=== PATIENT | male | born 1965 | race Caucasian/White ===

== ENCOUNTER 2016-10-25 11:07 | Emergency (ER) | payer SELFPAY ==
[~2016-10-25] VITALS: Ht 195.6 cm; Wt 121.4 kg
[2016-10-25 11:10] VITALS: TEMP 36.6; Ht 195.6 cm; Wt 121.4 kg
[2016-10-25] MEDS ORDERED: ONDANSETRON INJ 2 MG/ML 2 ML VIAL IV STA (11:52)
[2016-10-25] MEDS ORDERED: MoRPHine SULFATE 10 MG/ML CARP/VIAL IV STA (11:52)
[2016-10-25] MEDS ORDERED: SODIUM CHLORIDE 0.9% 1000ML 1,000 ML IV STA (11:52)
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
[2016-10-25 12:30] LABS: BASO % 0.7 %; BASO ABS # 0.06 K/uL (0-0.2); COMPLETE YES; EOS % 4.3 %; HEMATOCRIT 42.1 % (42-52); IG% 0.1 %; LYMPH % 35.7 %; MEAN CELL VOLUME 93.3 fL (80-100); MEAN CORPUSCULAR HEMOGLOBIN 31.9 pg (25-34); MEAN CORPUSCULAR HGB CONC 34.2 g/dl (32-36); MEAN PLATELET VOLUME 11.2 fL (7.4-10.4); MONO % 5.5 %; NEUT % 53.7 %; PLATELET COUNT 139 K/uL (130-400); RED BLOOD COUNT 4.51 M/uL (4.7-6.1); WHITE BLOOD COUNT 8.13 K/uL (4.8-10.8)
--- NOTE | 2016-10-25 12:32 | DIAGNOSTIC IMAGING REPORT ---
CT HEAD WITHOUT CONTRAST (CT) CLINICAL HISTORY: headache HYPERTENSION COMPARISON STUDY: No previous studies for comparison. TECHNIQUE: Axial CT of the brain is performed from the vertex to the skull base. IV contrast was not administered for this examination. CT DOSE: 729.78 mGycm FINDINGS: No intra or extra-axial mass lesions are visualized. There is no CT evidence of acute cortical infarction. There is no evidence of midline shift. There is no acute hemorrhage. No calvarial fractures are visualized. There is no evidence of pathologic ventricular dilatation. There is partial opacification of multiple ethmoid air cells. IMPRESSION: 1. No acute intracranial findings 2. Ethmoid sinus mucosal disease. Electronically signed by: Billy Ramon M.D. 10/25/2016 12:31 PM Dictated Date/Time: 10/25/2016 12:29 PM
--- NOTE | 2016-10-25 12:35 | DIAGNOSTIC IMAGING REPORT ---
CHEST ONE VIEW PORTABLE CLINICAL HISTORY: headache HYPERTENSION COMPARISON STUDY: No previous studies for comparison. FINDINGS: The heart is mildly enlarged. There is no failure. There is no lobar consolidation. There are no pleural effusions.[ IMPRESSION: Mild cardiomegaly. No acute findings. Electronically signed by: Billy Ramon M.D. 10/25/2016 12:34 PM Dictated Date/Time: 10/25/2016 12:33 PM
[2016-10-25 12:46] LABS: URINE APPEARANCE CLEAR (CLEAR); URINE BILIRUBIN NEG (NEG); URINE COLOR YELLOW; URINE NITRITE NEG (NEG); URINE PH 6.5 (4.5-7.5); URINE SPECIFIC GRAVITY 1.003 (1.000-1.030); UROBILINOGEN NEG (NEG); ZZUR CULT IF INDIC CLEAN CATCH NO
[2016-10-25 12:51] LABS: PARTIAL THROMBOPLASTIN RATIO 1.1; PROTHROMBIN TIME (PATIENT) 11.1 SECONDS (9.0-12.0)
[2016-10-25 12:53] LABS: BUN/CREATININE RATIO 10.4 (10-20); CALCIUM 8.6 mg/dl (8.5-10.1); POTASSIUM 4.2 mmol/L (3.5-5.1)
[2016-10-25 12:58] LABS: MANUAL MICROSCOPIC REQUIRED? NO; REVIEW REQ? NO
[2016-10-25] MEDS ORDERED: HYDROmorphone INJ 1 MG/ML SYR IV STA (13:03)
[2016-10-25] MEDS ORDERED: PROCHLORPERAZINE 5 MG/ML 2 ML VIAL IV STA (13:41)
[2016-10-25] MEDS ORDERED: DiphenhydrAMINE HCL 50 MG/ML VIAL IV STA (13:41)
[2016-10-25] MEDS ORDERED: OXYC1TAB3 PO (14:37)
[2016-10-25 14:48] VITALS: BP 120/69; PULSE 54; O2SAT 95
[2016-11-03] MEDS ORDERED: NAPR-1169 PO (09:02)
[2016-11-03] MEDS ORDERED: TRAM-10 PO (09:02)
[2016-11-03] MEDS ORDERED: PRVHFAIN INH (09:02)
[2016-11-03] MEDS ORDERED: VTMD PO (09:02)
[2016-11-03] MEDS ORDERED: OMEP40CA41 PO (09:02)
[2016-11-03] MEDS ORDERED: SULF800T23 PO (09:02)
== END 2016-10-25 14:49 | disposition home or self-care (01) ==
LOC: C.EDB 11:09
DX: R51 Headache (principal); I10 Essential (primary) hypertension; K21.9 Gastro-esophageal reflux disease without esophagitis; J45.909 Unspecified asthma, uncomplicated; F17.210 Nicotine dependence, cigarettes, uncomplicated

== ENCOUNTER 2016-10-31 13:12 | Inpatient (IN) | payer OTHER ==
[~2016-10-31] VITALS: Ht 195.6 cm; Wt 117.0 kg
[~2016-10-31 13:12] MED LIST: OXYC1TAB3 PO
[2016-10-31 14:05] LABS: BASO % 1.2 %; BASO ABS # 0.08 K/uL (0-0.2); COMPLETE YES; EOS % 0.2 %; HEMATOCRIT 39.1 % (42-52); IG% 0.3 %; LYMPH % 18.7 %; LYMPH ABS # 1.23 K/uL (1.2-3.4); MEAN CELL VOLUME 88.3 fL (80-100); MEAN CORPUSCULAR HEMOGLOBIN 31.4 pg (25-34); MEAN CORPUSCULAR HGB CONC 35.5 g/dl (32-36); MEAN PLATELET VOLUME 10.9 fL (7.4-10.4); NEUT % 70.6 %; PLATELET COUNT 141 K/uL (130-400); RED BLOOD COUNT 4.43 M/uL (4.7-6.1); WHITE BLOOD COUNT 6.58 K/uL (4.8-10.8)
[2016-10-31 14:12] LABS: BUN/CREATININE RATIO 17.7 (10-20); C-REACTIVE PROTEIN 0.52 mg/dl (0-0.29); CALCIUM 8.2 mg/dl (8.5-10.1); CREATININE 1.2 mg/dl (0.60-1.40); POTASSIUM 4.3 mmol/L (3.5-5.1)
[2016-10-31 14:27] LABS: CKMB/CK RATIO 0.7 (0-3.0); THYROID STIMULATING HORMONE 2.31 uIu/ml (0.300-4.500)
[2016-10-31] MEDS ORDERED: HYDROmorphone INJ 2 MG/ML SYR/VIAL IV STA ×2 (14:28→17:04)
--- NOTE | 2016-10-31 14:43 | DIAGNOSTIC IMAGING REPORT ---
TWO VIEW CHEST CLINICAL HISTORY: Chest pressure. Cough. FINDINGS: PA and lateral chest radiographs are compared to study dated 10/25/2016. The heart is mildly enlarged and there is atherosclerotic calcification of the thoracic aorta. Chronic interstitial thickening is similar to previous. The lungs and pleural spaces are clear. There is no pneumothorax. The bony thorax appears intact. IMPRESSION: Mild cardiac enlargement with no acute cardiopulmonary abnormality. Electronically signed by: Bry Spear M.D. 10/31/2016 2:42 PM Dictated Date/Time: 10/31/2016 2:41 PM
[2016-10-31 15:12] LABS: URINE APPEARANCE CLEAR (CLEAR); URINE BILIRUBIN NEG (NEG); URINE COLOR YELLOW; URINE NITRITE NEG (NEG); URINE SPECIFIC GRAVITY 1.012 (1.000-1.030); UROBILINOGEN NEG (NEG)
[2016-10-31 15:14] LABS: MANUAL MICROSCOPIC REQUIRED? NO; REVIEW REQ? NO
--- NOTE | 2016-10-31 16:25 | EMERGENCY ROOM VISIT NOTE ---
History Report prepared by Jaren: Little Gagnon Under the Supervision of: Dr. Meme Estrada D.O. First contact with patient: 13:35 Chief Complaint: ILLNESS Stated Complaint: NUMBNESS ON LEFT SIDE,VISION CHANGES, CHEST PAINS History of Present Illness The patient is a 51 year old male who presents to the Emergency Room with complaints of persistent numbness since yesterday afternoon. Four days ago, he began to experience Rafael horses all over his body. He thought it might be a potassium deficiency and took some potassium pills. He also drank a lot of water thinking that he might be dehydrated. Since yesterday he has been feeling numb over the left side of his body. This morning he also began shaking, experiencing jaw pain and inability to open his mouth completely. He has difficulty speaking because of the jaw discomfort and numbness in his tongue. He also reports that when he coughs, sneezes, or blows his nose, he momentarily loses vision, more in his left than right, and experiences very severe shooting pain in his head. He is also experiencing vomiting, sneezing, coughing, headaches, and nose bleeds. He is unsure if he has a fever. He reports that it is difficult for him to get up from a sitting position because of the symptoms. He had previously visited the ED for a headache, but the CT scan found nothing. He is on medication for heartburn. He reports that he has been clean 4 years from drug abuse. He lives with his fiancee. She has been away, but reports that his voice sounds different. He says he has a history of hypertension, heart, liver, gallbladder, and stomach problems. Source of History: patient Onset: yesterday afternoon Position: other (global) Quality: numbness Timing: other (persistent) Associated Symptoms: + cough, + headache, + vomiting Note: Associated symptoms: sneezing, epistaxis, jaw pain, muscle spasms, vision changes. Review of Systems See HPI for pertinent positives & negatives. A total of 10 systems reviewed and were otherwise negative. Past Medical & Surgical Medical Problems: (1) Alcohol abuse (2) Asthma (3) Asthma, Unspecified (4) Drug abuse (5) Elevated CK (6) Esophageal Reflux (7) GERD (gastroesophageal reflux disease) (8) Hepatitis C (9) Hepatitis C (10) History of drug abuse (11) Intractable abdominal pain (12) Tobacco abuse Surgical Problems: (1) H/O hernia repair Family History Heart disease FATHER, Onset:60 years & older MOTHER, Onset:60 years & older Social History Smoking Status: Current Every Day Smoker Alcohol Use: none Drug Use: none, other Marital Status: Housing Status: lives with family Occupation Status: employed Current/Historical Medications Unable to Obtain Active Prescriptions or Reported Meds Allergies Coded Allergies: Iodine (Verified Allergy, Severe, ANAPHYLAXIS, 10/31/16) Latex (Verified Allergy, Severe, ANAPHYLAXIS, 10/31/16) Penicillins (Verified Allergy, Unknown, RASH, 10/31/16) Codeine (Verified Adverse Reaction, Unknown, nausea, 10/31/16) Physical Exam Vital Signs Date Time Temp Pulse Resp B/P Pulse Ox O2 Delivery O2 Flow Rate FiO2 10/31/16 17:00 Room Air 10/31/16 16:53 74 18 139/56 97 Room Air 10/31/16 14:31 84 20 168/138 96 Room Air 10/31/16 13:43 83 10/31/16 13:16 37.6 90 16 132/88 99 Room Air Physical Exam HEENT: Head - normocephalic and atraumatic. Pupils are equal, round, and reactive to light. Extraocular eye muscles are intact and sclera are anicteric. Ears - bilaterally patent canals with noninjected tympanic membranes and no evidence of hemotympanum. Nose - moist nasal mucosa without discharge. Mouth - moist buccal mucosa. Oropharynx is nonerythematous and there is no tonsillar exudate or edema noted. Neck: Supple; no JVD, nuchal rigidity. Area of tenderness on the submental area on the left and anterior lymph node chain. Heart: Regular rate and rhythm. There is a normal S1 and S2 with no murmurs, clicks, or gallops appreciated. Lungs: Clear to auscultation bilaterally with no wheezes, rales, or rhonchi. Abdomen: Soft, completely nontender, nondistended, with good bowel sounds. There are no palpable pulsatile masses or hepatosplenomegaly. There is no guarding, rigidity, or rebound noted. Extremities: No evidence of cyanosis, clubbing, or edema. There are easily palpable peripheral pulses. Neuro:The patient is awake and alert, oriented to day, time, and place. Muscle strength is 5/5 in all 4 extremities. The patient has equal supervisor cook room strength and equal pedal push and pull. There are no cerebellar signs. Medical Decision & Procedures ER Provider Diagnostic Interpretation: X-ray results as stated below per interpretation by me and the radiologist: TWO VIEW CHEST CLINICAL HISTORY: Chest pressure. Cough. FINDINGS: PA and lateral chest radiographs are compared to study dated 10/25/2016. The heart is mildly enlarged and there is atherosclerotic calcification of the thoracic aorta. Chronic interstitial thickening is similar to previous. The lungs and pleural spaces are clear. There is no pneumothorax. The bony thorax appears intact. IMPRESSION: Mild cardiac enlargement with no acute cardiopulmonary abnormality. Electronically signed by: Bry Spear M.D. 10/31/2016 2:42 PM Dictated Date/Time: 10/31/2016 2:41 PM Laboratory Results Test 10/31/16 13:41 10/31/16 14:50 Immature Granulocyte % (Auto) 0.3 % White Blood Count 6.58 K/uL (4.8-10.8) Red Blood Count 4.43 M/uL (4.7-6.1) Hemoglobin 13.9 g/dL (14.0-18.0) Hematocrit 39.1 % (42-52) Mean Corpuscular Volume 88.3 fL (80-100) Mean Corpuscular Hemoglobin 31.4 pg (25-34) Mean Corpuscular Hemoglobin Concent 35.5 g/dl (32-36) Platelet Count 141 K/uL (130-400) Mean Platelet Volume 10.9 fL (7.4-10.4) Neutrophils (%) (Auto) 70.6 % Lymphocytes (%) (Auto) 18.7 % Monocytes (%) (Auto) 9.0 % Eosinophils (%) (Auto) 0.2 % Basophils (%) (Auto) 1.2 % Neutrophils # (Auto) 4.65 K/uL (1.4-6.5) Lymphocytes # (Auto) 1.23 K/uL (1.2-3.4) Monocytes # (Auto) 0.59 K/uL (0.11-0.59) Eosinophils # (Auto) 0.01 K/uL (0-0.5) Basophils # (Auto) 0.08 K/uL (0-0.2) Immature Granulocyte # (Auto) 0.02 K/uL (0.00-0.02) Erythrocyte Sedimentation Rate 14 mm/hr (0-14) Direct Bilirubin 0.2 mg/dl (0-0.2) Creatine Kinase MB 21.3 ng/ml (0.5-3.6) Creatine Kinase MB Ratio 0.7 (0-3.0) Troponin I 0.025 ng/ml (0-0.045) C-Reactive Protein 0.52 mg/dl (0-0.29) Thyroid Stimulating Hormone (TSH) 2.310 uIu/ml (0.300-4.500) Lyme Disease IgG Antibody NEG (NEG) Urine Color YELLOW Urine Appearance CLEAR (CLEAR) Urine pH 6.0 (4.5-7.5) Urine Specific [place] 1.012 (1.000-1.030) Urine Protein NEG (NEG) Urine Glucose (UA) NEG (NEG) Urine Ketones NEG (NEG) Urine Occult Blood NEG (NEG) Urine Nitrite NEG (NEG) Urine Bilirubin NEG (NEG) Urine Urobilinogen NEG (NEG) Urine Leukocyte Esterase NEG (NEG) Urine Opiates Screen POS (NEG) Urine Methadone, Qualitative NEG (NEG) Urine Barbiturates NEG (NEG) Urine Phencyclidine (PCP) Level NEG (NEG) Ur Amphetamine/Methamphetamine POS (NEG) MDMA (Ecstasy) Screen NEG (NEG) Urine Benzodiazepines Screen NEG (NEG) Urine Cocaine Metabolite NEG (NEG) Urine Marijuana (THC) POS (NEG) Laboratory results per my review. Medications Administered Medications (Trade) Dose Ordered Sig/Savita Route Start Time Stop Time Status Last Admin Dose Admin Hydromorphone HCl (Dilaudid Inj) 2 mg NOW STAT IV 10/31/16 14:28 10/31/16 14:29 DC 10/31/16 14:33 2 MG Hydromorphone HCl 2 mg 2 mg NOW STAT IV 10/31/16 17:04 10/31/16 17:05 DC 10/31/16 17:18 2 MG Sodium Chloride (Nss 1000ml) 1,000 ml @ 250 mls/hr Q4H STAT IV 10/31/16 17:05 10/31/16 20:16 DC 10/31/16 17:19 250 MLS/HR Procedure Medications: Dilaudid Inj 2 mg IV X2 IV normal saline solution. ECG Indication: chest pain Rate (beats per minute): 84 Rhythm: normal sinus Findings: no acute ischemic change, no ectopy ED Course 1343: The patient was evaluated in room B4. A complete history and physical examination were performed. Nursing notes ad previous electronic medical records were reviewed. IV lock was established and labs were drawn as above. Patient had a chest x-ray as described above. Twelve-lead EKG as described above. 1419: I reevaluated the patient. I informed him that he will need to be in the MRI up to his waist. He is considering getting the MRI. He says that he would like some pain medication and specified he would like some Dilaudid. 1428: Dilaudid Inj 2 mg IV. 1545: I discussed the patient's case with Dr. Gomez, [facility] - internal medicine. The patient will be evaluated for further management. 1550: I reevaluated the patient. I discussed the results and treatment plan. He expressed understanding and agreement. He agreed to being evaluated for further management. He requested additional IV Dilaudid. He was given an additional 2 mg. He was started on IV normal saline drip because of the elevated total CPK. Medical Decision The patient is a 51 year old male who presents to the ED with numbness. Differential diagnosis includes hypoglycemia, cardiac ischemia, drug abuse, hyponatremia, severe intracranial process, or exacerbation of hepatitis. Urinalysis is negative. Sed rate of 14. C-reactive protein of .52. Mildly anemic with hemoglobin of 13.9. TSH 2.3. Total CK of 2866. Troponin of 0.025. ALT 118, AST 175. BUN 21, creatinine 1.2. This is a 51-year-old male patient presents emergency Department with multiple complaints. He is most concerned about his progressive weakness. The patient does have elevated total CPK consistent with acute rhabdomyolysis. The patient has no evidence of an acute OR. Cardiac enzymes were negative. The patient has had a negative CT scan of the brain within the past week. He most likely will require an MRI of the brain but states that he had to receive general anesthesia last time he required an MRI because of severe claustrophobia. I've discussed the case with the [facility] Hospitalist and they will evaluate the patient for further management. Consults Time Called: 1540 Consulting Physician: Dr. Gomez, [facility] - internal medicine Returned Call: [phone] I discussed the patient's case with him. The patient will be evaluated for further management. Impression Primary Impression: Rhabdomyolysis Additional Impression: Weakness of extremity Scribe Attestation The scribe's documentation has been prepared under my direction and personally reviewed by me in its entirety. I confirm that the note above accurately reflects all work, treatment, procedures, and medical decision making performed by me. Departure Information Dispostion Being Evaluated By Hospitalist Prescriptions Unable to Obtain Active Prescriptions or Reported Meds Referrals No Doctor, Assigned (PCP) Patient Instructions My [facility] Problem Qualifiers
[2016-10-31 17:00] VITALS: Ht 195.6 cm; Wt 117.0 kg
[2016-10-31] MEDS ORDERED: SODIUM CHLORIDE 0.9% 1000ML 1,000 ML IV STA (17:05)
[2016-10-31] MEDS ORDERED: HYDROmorphone INJ 0.5 MG/0.5 ML SYR IV PRN (17:45)
[2016-10-31] MEDS ORDERED: ONDANSETRON INJ 2 MG/ML 2 ML VIAL IV PRN (17:45)
[2016-10-31] MEDS ORDERED: MAGNESIUM HYDROXIDE SUSP 30 ML UDC PO PRN (17:45)
[2016-10-31 18:15] LABS: BENZODIAZEPINE, URINE NEG (NEG); COCAINE,URINE NEG (NEG); PHENCYCLIDINE, URINE NEG (NEG)
--- NOTE | 2016-10-31 18:18 | HISTORY & PHYSICAL EXAMINATION ---
DATE OF ADMISSION: 10/31/2016 CHIEF COMPLAINT: Weak all over. ADMITTING DIAGNOSIS: Elevated CK. HISTORY OF PRESENT ILLNESS: Mr. Lee is a 51-year-old male who presents to the Emergency Department with multiple somatic complaints beginning approximately 1 day ago. His story is difficult to follow as the patient states that he has seen many doctors many different hospitals including [facility], [place] and even [facility]. The patient states that most of his problems he believes originated from his previous years of substance abuse. The patient claims to be clean since he left [facility] in 2012. The patient was seen in our ER approximately 1 week ago with a workup which was unremarkable. He was discharged home. During that evaluation, the patient had a CT scan of his head, chest x-ray, serologies and was discharged with pain medication and recommended to follow up with his family physician. On this evaluation in the Emergency Department, the patient did have a liver function tests drawn which are slightly elevated with an AST of 175. The patient did have LFTs drawn a week prior and these were normal, now they are elevated. He had a CK drawn which is 2,866. This current hospital stay chest x-ray was repeated showing no significant abnormalities. Sed rate was 14, which was normal. The patient required 2 doses of Dilaudid for pain management. The patient is recommended for admission for his elevated CK. PAST MEDICAL HISTORY: For drug and alcohol abuse, previous history of asthma, GERD, previous history of hepatitis C for which the patient does not claim to know what his status is and at one point he said they thought he had cancer of the liver. MEDICATIONS: None. SOCIAL HISTORY: Reportedly does not smoke cigarettes but smokes marijuana a few times a week. Does not drink alcohol. FAMILY HISTORY: For heart disease. REVIEW OF SYSTEMS: Ten systems are reviewed. There are multiple somatic positives, mostly revolving around weight loss which he claims he lost 150 pounds in 4 months, muscle weakness, "charley horses all over", visual disturbance when he coughs, problems moving his haw, his jaw becoming spastic in his words. Otherwise, 10 systems were reviewed and are negative. PHYSICAL EXAMINATION: GENERAL: He is a pleasant enough gentleman. He has got tattoos about about his body. VITAL SIGNS: Temperature is 37.6, pulse is 74, respiration rate 18, BP 134/56, O2 sat is 97 on room air. HEAD, EYES, EARS, NOSE, AND THROAT: PERRL, EOMI. Oropharynx clear. NECK: Without lymphadenopathy. Trachea is midline. HEART: Regular without murmurs. There is no peripheral stigmata of endocarditis. LUNGS: Clear without wheezes or crackles. Good air movement. ABDOMEN: Normoactive bowel sounds, soft, nontender, nondistended, no organomegaly. EXTREMITIES: Without cyanosis, clubbing, or edema. Strength is 4.5/5 and equal bilaterally. He has no focal loss of sensation. SKIN: Without lesions, growths, bruises or bleeding. In fact, he appears quite martinez. He does not have any unusual hyperpigmentation. Chest x-ray is unremarkable. LABORATORY DATA: EKG shows sinus rhythm without any acute ST or T-wave changes. He may have a little bit of right atrial enlargement, but it is not read by the computer. Laboratories have a white count of 6, H\\T\\H 13 and 39, platelet 141, BUN and creatinine of 21 and 1.0, glucose 117, AST 175, ALT 118, alkaline phosphatase unremarkable. Total CK 2,866. TSH and albumin are unremarkable. ASSESSMENT: A 51-year-old male elevated CK and transaminase elevation with a history of hepatitis C. 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 He says he is planning on going for a physical to work at a [employer]. We will hydrate him and repeat his CK in the morning. His sed rate is unremarkable to go against any concerns for myositis or vasculitis. Likewise, he has no focal muscle pain with exam. With regard to his transaminitis certainly this could be his hepatitis. Will do hepatitis C screen as we have never done one here at our facility. We will do ultrasound of his liver to look for liver masses. Regarding his pain, there may be secondary pain with this gentleman. We will continue IV p.r.n. parenteral pain medications at this point in time. We will not repeat head CT as examination which included funduscopic exam which was not documented above in the funduscopic exam is unremarkable with exam. The patient does have some ethmoid sinus disease commented upon on his previous CT of his head. We will begin some levofloxacin as he does have penicillin allergy. This will be oral and we will check a Lyme titer as it may cause very somatic complaints. DVT prevention is early ambulation. THE PATIENT IS A FULL CODE.
[2016-10-31 19:30] VITALS: BP 119/68; PULSE 92; TEMP 38.2; O2SAT 95
[2016-10-31] MEDS: LEVOFLOXACIN 500 MG TAB PO SCH (21:07)
[2016-10-31] MEDS: SODIUM CHLORIDE 0.9% 1000ML 1,000 ML IV SCH (21:07)
[2016-10-31] MEDS: HYDROmorphone INJ 1 MG/ML SYR IV PRN (21:25)
[2016-10-31] MEDS: NICOTINE 21 MG/24 HR TDSY TD SCH (21:43)
[2016-10-31 23:29] VITALS: BP 122/66; PULSE 86; TEMP 37.5; O2SAT 95
[2016-11-01] MEDS: SODIUM CHLORIDE 0.9% 1000ML 1,000 ML IV SCH ×4 (01:15→20:41)
[2016-11-01] MEDS: HYDROmorphone INJ 2 MG/ML SYR/VIAL IV PRN ×6 (01:26→23:48)
[2016-11-01 07:00] VITALS: BP 107/68; PULSE 62; TEMP 36.9; O2SAT 95
--- NOTE | 2016-11-01 08:00 | DIAGNOSTIC IMAGING REPORT ---
Interval quadrant ultrasound (LIVER) ABDOMEN LIMITED CLINICAL HISTORY: history of hep c eval for HCC pain. Nausea. TECHNIQUE: Ultrasound COMPARISON STUDY: 05/31/2016 FINDINGS: Gallbladder is normal. Common bile duct 6 mm. Liver is uniform. Pancreas and right kidney are unremarkable. IMPRESSION: Normal study Electronically signed by: Forest Manning M.D. 11/01/2016 7:59 AM Dictated Date/Time: 11/01/2016 7:54 AM
[2016-11-01] MEDS: PANTOprazole SOD 40 MG TAB PO SCH (08:13)
[2016-11-01 08:20] LABS: HEMATOCRIT 36.6 % (42-52); MEAN CELL VOLUME 90.6 fL (80-100); MEAN CORPUSCULAR HEMOGLOBIN 31.4 pg (25-34); MEAN CORPUSCULAR HGB CONC 34.7 g/dl (32-36); MEAN PLATELET VOLUME 10.4 fL (7.4-10.4); PLATELET COUNT 115 K/uL (130-400); RED BLOOD COUNT 4.04 M/uL (4.7-6.1); WHITE BLOOD COUNT 4.31 K/uL (4.8-10.8)
[2016-11-01 08:45] LABS: BUN/CREATININE RATIO 16.2 (10-20); CALCIUM 7.7 mg/dl (8.5-10.1); CREATININE 0.9 mg/dl (0.60-1.40); POTASSIUM 4.4 mmol/L (3.5-5.1)
[2016-11-01 09:09] LABS: ALB/GLOB RATIO 0.8 (0.9-2)
[2016-11-01] MEDS: ALBUTEROL HFA 8 GM INHALER INH SCH ×3 (10:51→20:44)
[2016-11-01] MEDS ORDERED: LORAZEPAM INJ 1 MG in SYRINGE 0.5 ML IV PRN (11:15)
[2016-11-01 12:13] LABS: HEPATITIS B AB NEG
[2016-11-01 14:50] VITALS: BP 136/76; PULSE 62; TEMP 37; O2SAT 96
--- NOTE | 2016-11-01 15:11 | Progress Note ---
Subjective Date of Service: Nov 01, 2016. Subjective Pt evaluation today including: conversation w/ patient, physical exam, chart review, lab review, review of studies (cxr, liver u/s ), review of inpatient medication list Pain: neck, posterior, started last 24 hours PO Intake: normal Voiding: no voiding problems Reports paresthesias of both hands/arms for weeks-months. Reports 150 pound weight loss in the last year and that his muscles "just have gotten weaker." Denies any prescription drug use/abuse or any illicit drugs. 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 When asked about HepC he states "the people across the parking lot are following me for it" but then can't remember who he has seen. Denies fevers/chills or recent travel. Problem List Medical Problems: (1) Asthma, Unspecified Status: Chronic (2) Esophageal Reflux Status: Chronic (3) Headache Status: Acute (4) Hepatitis C Status: Chronic (5) Hypertension Status: Acute (6) Rhabdomyolysis Status: Acute (7) Weakness of extremity Status: Acute Review of Systems Constitutional: + weakness, + weight loss, No chills, No fever, No sweats Respiratory: + wheezing, No cough Cardiac: No chest pain Abdomen: No diarrhea, No nausea, No pain, No vomiting Objective Vital Signs Date Time Temp Pulse Resp B/P Pulse Ox O2 Delivery O2 Flow Rate FiO2 11/01/16 14:50 37.0 62 18 136/76 96 11/01/16 08:30 Room Air 11/01/16 07:00 36.9 62 18 107/68 95 Room Air 11/01/16 00:00 Room Air 10/31/16 23:29 37.5 86 16 122/66 95 Nasal Cannula 10/31/16 19:30 38.2 92 20 119/68 95 Room Air 10/31/16 19:12 70 18 117/68 95 Room Air 10/31/16 17:00 Room Air 10/31/16 16:53 74 18 139/56 97 Room Air Physical Exam General Appearance: no apparent distress ENT: pharynx normal Neck: no JVD, + pertinent finding (very tender to palpation over the cervical spine in the midline; mild tenderness with passive ROM of the neck ) Respiratory/Chest: no respiratory distress, no accessory muscle use, + wheezing (mild end-exp) Cardiovascular: regular rate, rhythm, no gallop, no murmur Abdomen: normal bowel sounds, non tender, soft, + hepatomegaly, + splenomegaly Extremities: no pedal edema Neurologic/Psychiatric: no motor/sensory deficits, alert, oriented x 3, + pertinent finding (DTRs 2+ b/l, strength 5/5 x 4 exts, no proximal muscle weakness) Skin: + pertinent finding (numerous tattoos, no rash) Laboratory Results Last 24 Hours Test 11/01/16 08:10 11/01/16 10:30 White Blood Count 4.31 K/uL Red Blood Count 4.04 M/uL Hemoglobin 12.7 g/dL Hematocrit 36.6 % Mean Corpuscular Volume 90.6 fL Mean Corpuscular Hemoglobin 31.4 pg Mean Corpuscular Hemoglobin Concent 34.7 g/dl RDW Standard Deviation 43.5 fL RDW Coefficient of Variation 13.1 % Platelet Count 115 K/uL Mean Platelet Volume 10.4 fL Sodium Level 141 mmol/L Potassium Level 4.4 mmol/L Chloride Level 107 mmol/L Carbon Dioxide Level 24 mmol/L Anion Gap 10.0 mmol/L Blood Urea Nitrogen 15 mg/dl Creatinine 0.90 mg/dl Est Creatinine Clear Calc Drug Dose 137.7 ml/min Estimated GFR () 114.2 Estimated GFR (Non- 98.5 BUN/Creatinine Ratio 16.2 Random Glucose 105 mg/dl Calcium Level 7.7 mg/dl Total Bilirubin 0.4 mg/dl Aspartate Amino Transf (AST/SGOT) 114 U/L Alanine Aminotransferase (ALT/SGPT) 96 U/L Alkaline Phosphatase 55 U/L Total Creatine Kinase 1314 U/L Total Protein 6.3 gm/dl Albumin 2.8 gm/dl Globulin 3.5 gm/dl Albumin/Globulin Ratio 0.8 Cortisol AM Sample 20.55 mcg/dl Hepatitis C Antibody PRELIM POS Vitamin B12 Level 790 pg/mL Hepatitis B Surface Antigen NEG Hepatitis B Surface Antibody NEG HIV (1&2) Ab and P24 Ag, 4th Gener NEG Assessment and Plan 51yo male: 1. rhabdomyolysis - unclear etiology? Drug abuse? Improving biochemically. Continue IVF. Repeat CPK am. 2. acute kidney injury - likely 2nd to #1 - improved. 3. fever, neck pain discomfort on exam - r/o diskitis/abscess - attempted MRI w /o success (claustrophobic despite ativan). CT cervical spine w/ contrast abdias. 4. b/l arm paresthesias - check c-spine CT. Check vitamin B12 level. Lyme's negative, TSH normal. 5. abnormal LFTs - uncertain etiology but improved today. Drug abuse? etoh abuse? other? repeat LFTs in 1-2 days. 6. polysubstance abuse - will crisis intervention counselor him on dangers of such. 7. h/o HepC - antibody is +, RNA levels pending. Refer to GI at discharge for management. Likely due to tattoos and/or drug abuse. Check HIV and RPR as well; verbal consent obtained for HIV testing. 8. sinusitis - day #2 levaquin. 9. FEN - cut fluid rate to 125cc/hr. BMP am. 10. DVT proph - heparin 5000 TID. Continued [facility] stay due to: inadequate oral pain control, multiple IV medications needed Discharge planning: home
[2016-11-01 15:45] VITALS: O2SAT 96
--- NOTE | 2016-11-01 18:10 | DIAGNOSTIC IMAGING REPORT ---
CT OF THE CERVICAL SPINE WITHOUT CONTRAST CLINICAL HISTORY: Posterior neck pain. Upper extremity paresthesias. Evaluate for degenerative disc disease. COMPARISON STUDY: No previous studies for comparison. TECHNIQUE: Helical axial images of the cervical spine were obtained without IV contrast. Sagittal and coronal reconstructions were viewed. FINDINGS: Alignment of the cervical spine is anatomic. No acute fracture or suspicious lesion is identified on this exam by CT. The craniocervical junction is intact. Moderate degenerative changes are noted at the C1-C2 articulation. There is mild multilevel degenerative disc disease and facet arthrosis of the cervical spine. Central canal and neural foramen are suboptimally assessed by CT. There is no prevertebral edema. Mild mucosal thickening is noted within the sinuses with suspected tiny air-fluid levels within the maxillary sinuses. IMPRESSION: 1. No acute cervical spine fracture or subluxation. 2. Mild multilevel degenerative disc disease and facet arthrosis of the cervical spine, most pronounced at C6-C7. Suboptimal evaluation of the central canal and neural foramen due to CT technique. Suspected mild to moderate central canal stenosis at C6-C7. Electronically signed by: Gregorio Charlton M.D. 11/01/2016 6:08 PM Dictated Date/Time: 11/01/2016 6:04 PM
[2016-11-01] MEDS: LEVOFLOXACIN 500 MG TAB PO SCH (20:42)
[2016-11-01] MEDS: NICOTINE 21 MG/24 HR TDSY TD SCH (20:43)
[2016-11-01] MEDS: HEPARIN SOD 5000 UNIT/0.5 ML CARP SQ SCH (20:52)
[2016-11-02 00:28] VITALS: BP 136/88; PULSE 59; TEMP 37; O2SAT 95
[2016-11-02] MEDS: SODIUM CHLORIDE 0.9% 1000ML 1,000 ML IV SCH (03:35)
[2016-11-02] MEDS: ALBUTEROL HFA 8 GM INHALER INH SCH ×4 (03:35→21:39)
[2016-11-02] MEDS: HEPARIN SOD 5000 UNIT/0.5 ML CARP SQ SCH ×3 (05:31→21:44)
[2016-11-02] MEDS: HYDROmorphone INJ 1 MG/ML SYR IV PRN (05:35)
[2016-11-02 07:13] VITALS: BP 146/78; PULSE 57; TEMP 36.9; O2SAT 97
[2016-11-02 07:33] LABS: BUN/CREATININE RATIO 16.3 (10-20); CREATININE 0.86 mg/dl (0.60-1.40); POTASSIUM 4.3 mmol/L (3.5-5.1)
[2016-11-02 07:35] LABS: ALB/GLOB RATIO 0.9 (0.9-2)
[2016-11-02 08:00] VITALS: O2SAT 97
[2016-11-02] MEDS: PANTOprazole SOD 40 MG TAB PO SCH (08:12)
[2016-11-02] MEDS ORDERED: SODIUM CHLORIDE 0.45% 1000ML 1,000 ML IV SCH (08:45)
[2016-11-02] MEDS: OXYCODONE HCL IR 5 MG TAB (IMMEDIATE RELEASE) PO PRN ×2 (08:53→15:28)
[2016-11-02] MEDS: CeleBREX 200 MG CAP PO SCH ×2 (08:58→21:40)
[2016-11-02] MEDS: LIDODERM (LIDOCAINE) PATCH 5% TD ONE ×2 (11:17→12:30)
[2016-11-02 16:00] VITALS: O2SAT 98
--- NOTE | 2016-11-02 16:00 | Progress Note ---
Subjective Date of Service: Nov 02, 2016. Subjective Pt evaluation today including: conversation w/ patient, physical exam, chart review, lab review, review of studies (CT c-spine) Pain: neck, posterior PO Intake: normal/eating well Voiding: no voiding problems "feels much better" today not as achy and muscles not as sore denies any paresthesias of hands/arms today outpatient office records reviewed - seen by ID about 1 year ago (10/2015) for consideration of Rx for HepC. Had viral load of nearly 1,000,000 at that time. Office records indicate he had multiple no-shows for appointments and he had been to various doctors in [facility] for weight loss, abd pain, etc. His weight in October 2015 was 255 pounds. Problem List Medical Problems: (1) Asthma, Unspecified Status: Chronic (2) Esophageal Reflux Status: Chronic (3) Headache Status: Acute (4) Hepatitis C Status: Chronic (5) Hypertension Status: Acute (6) Rhabdomyolysis Status: Acute (7) Weakness of extremity Status: Acute Review of Systems Constitutional: No chills, No fever Respiratory: No cough, No shortness of breath Cardiac: No chest pain Abdomen: No nausea, No pain, No vomiting Objective Vital Signs Date Time Temp Pulse Resp B/P Pulse Ox O2 Delivery O2 Flow Rate FiO2 11/02/16 08:00 97 Room Air 11/02/16 07:13 36.9 57 18 146/78 97 11/02/16 00:28 37.0 59 18 136/88 95 Room Air 11/02/16 00:00 Room Air 11/01/16 15:45 96 Room Air Physical Exam General Appearance: no apparent distress ENT: pharynx normal Neck: no JVD Respiratory/Chest: no respiratory distress, no accessory muscle use, + wheezing Cardiovascular: regular rate, rhythm, no gallop, no murmur Abdomen: normal bowel sounds, non tender, soft, + hepatomegaly, + splenomegaly Extremities: no pedal edema Neurologic/Psychiatric: no motor/sensory deficits, alert, oriented x 3 Skin: + pertinent finding (numerous tattoos) Laboratory Results Last 24 Hours Test 11/02/16 06:25 Sodium Level 144 mmol/L Potassium Level 4.3 mmol/L Chloride Level 111 mmol/L Carbon Dioxide Level 26 mmol/L Anion Gap 7.0 mmol/L Blood Urea Nitrogen 14 mg/dl Creatinine 0.86 mg/dl Est Creatinine Clear Calc Drug Dose 144.1 ml/min Estimated GFR () 116.4 Estimated GFR (Non- 100.4 BUN/Creatinine Ratio 16.3 Random Glucose 110 mg/dl Calcium Level 8.0 mg/dl Total Bilirubin 0.4 mg/dl Aspartate Amino Transf (AST/SGOT) 88 U/L Alanine Aminotransferase (ALT/SGPT) 92 U/L Alkaline Phosphatase 56 U/L Total Creatine Kinase 549 U/L Total Protein 6.2 gm/dl Albumin 2.9 gm/dl Globulin 3.3 gm/dl Albumin/Globulin Ratio 0.9 Assessment and Plan 51yo male: 1. rhabdomyolysis - Nearly resolved. unclear etiology - Drug abuse? viral induced? other? He denies any recent fall or strenuous activities. Continue IVF. Repeat CPK am. 2. acute kidney injury - likely 2nd to #1 - resolved. Stop fluids later tonight. 3. fever, neck pain discomfort on exam - CT cervical spine without obvious abscess, diskitis, etc. fever resolved. neck pain is better. 4. b/l arm paresthesias - likely 2nd to DJD of C-spine. Will arrange outpatient ortho follow-up or pain management. vitamin B12 level normal, Lyme's negative, TSH normal. 5. abnormal LFTs - uncertain etiology but improved today yet again. Drug abuse ? etoh abuse? other? LFTs in October 2015 (seen in [facility] office records) also high. Suspect he has baseline element of transaminitis from hepC. 6. polysubstance abuse - will counselor supervisor him on dangers of such. 7. h/o HepC - office records reviewed. He DOES in fact have chronic hepC. Records from October 2015 showed viral load of nearly 1,000,000. Needs to re-establish with ID to consider Rx. 8. sinusitis - day #3 levaquin. 9. FEN - change fluids to 1/2 NS. Stop fluids later tonight. 10. DVT proph - heparin 5000 TID. 11. COPD - albuterol q6h. 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 - start celebrex 200mg BID lidoderm patches d/c dilaudid oxycodone prn updated daughter by phone she states that sometime in the last year her father had emergency surgery in [place] for a "stomach problem" he was in [place] due to a child of his living in that region she is unsure what the surgery was but she states "it saved his life" she reports he has been going to a clinic in [place] she cannot recall his PCP's name strongly recommend that he pick one health system for his healthcare needs as his care has been quite disjointed (care has been in [place], [place], [place], [facility], [place], [place], etc) anticipate d/c tomorrow AM Continued [facility] stay due to: inadequate oral pain control, multiple IV medications needed Discharge planning: home
[2016-11-02 16:05] VITALS: BP 163/85; PULSE 44; TEMP 36.4; O2SAT 98
[2016-11-02] MEDS: LEVOFLOXACIN 500 MG TAB PO SCH (21:39)
[2016-11-02] MEDS: NICOTINE 21 MG/24 HR TDSY TD SCH (21:42)
[2016-11-03 00:33] VITALS: BP 142/100; PULSE 50; TEMP 36.6; O2SAT 97
[2016-11-03] MEDS: OXYCODONE HCL IR 5 MG TAB (IMMEDIATE RELEASE) PO PRN ×2 (03:19→09:47)
[2016-11-03] MEDS: ALBUTEROL HFA 8 GM INHALER INH SCH ×2 (03:19→08:36)
[2016-11-03] MEDS: HEPARIN SOD 5000 UNIT/0.5 ML CARP SQ SCH (05:05)
[2016-11-03 07:15] LABS: HEMATOCRIT 38.2 % (42-52); MEAN CORPUSCULAR HEMOGLOBIN 31.1 pg (25-34); MEAN CORPUSCULAR HGB CONC 35.3 g/dl (32-36); MEAN PLATELET VOLUME 11.7 fL (7.4-10.4); PLATELET COUNT 127 K/uL (130-400); RED BLOOD COUNT 4.34 M/uL (4.7-6.1); WHITE BLOOD COUNT 4.39 K/uL (4.8-10.8)
[2016-11-03 07:25] VITALS: BP 148/84; PULSE 53; TEMP 36.4; O2SAT 98
[2016-11-03] MEDS ORDERED: LIDODERM (LIDOCAINE) PATCH 5% TD SCH (08:00)
[2016-11-03] MEDS: CeleBREX 200 MG CAP PO SCH (08:37)
[2016-11-03] MEDS: PANTOprazole SOD 40 MG TAB PO SCH (08:38)
[2016-11-03] MEDS ORDERED: ERGOCALCIFEROL 50,000 INTER.UNIT CAP PO SCH (09:00)
[2016-11-03] MEDS ORDERED: PRVHFAIN INH (09:02)
[2016-11-03] MEDS ORDERED: VTMD PO (09:02)
[2016-11-03] MEDS ORDERED: OMEP40CA41 PO (09:02)
[2016-11-03] MEDS ORDERED: SULF800T23 PO (09:02)
[2016-11-03] MEDS ORDERED: TRAM-10 PO (09:02)
[2016-11-03] MEDS ORDERED: NAPR-1169 PO (09:02)
--- NOTE | 2016-11-03 09:15 | Discharge Instructions ---
Discharge Instructions Date of Service Nov 03, 2016. Admission Reason for Admission: Muscle aches/cramps Discharge Discharge Diagnosis / Problem: 1. Neck pain due to significant arthritis 2. muscle aches Discharge Goals Goal(s): Decrease discomfort, Improve function, Improve disease control, Learn about illness, Diagnostic testing, Therapeutic intervention Activity Recommendations Activity Limitations: resume your previous activity . Instructions / Follow-Up Instructions / Follow-Up 1. Your muscle aches and cramps was due to a condition called Rhabdomyolysis. This is a temporary condition where the muscles get hurt, releasing a substance into the blood stream. That substance causes muscle aches & cramps. The rhabdomyolysis is now RESOLVED. 2. You have evidence of vitamin D deficiency. Please take vitamin D capsule (ergocalciferol) 77686 units twice a week on Wednesdays & Saturdays for 8 weeks. Your family doctor will need to recheck your vitamin D level in about 2-3 months. 3. You have evidence of ongoing Hepatitis C infection. Please see the infection specialist at [facility] as scheduled to discuss treatment plans. 4. To prevent and treat stomach pain/heartburn/etc please take omeprazole 40mg once daily every day. 5. Neck pain - Your neck pain is due to arthritis of the neck. Some of the numbness and symptoms in your arms is likely due to this. Please see the neck specialist as scheduled for you. You have been prescribed the following for your neck - * tramadol 50mg every 6 hours as needed * naprosyn 500mg every 12 hours as needed; take with food * any additional refills will need to come from your family doctor Avoid any activity that makes your neck pain worse (heavy lifting, etc). 6. You may have had a sinus infection. Complete your course of antibiotics with bactrim tablets twice daily for 4 days. Start this today. Our greatest recommendation is for you to have regularly scheduled follow-up appointments with your family doctor in [place]. That doctor can coordinate all of your care for you and address the various problems that are ailing you. Follow-up appointments - 1. infectious disease in [place] at [facility] 2. primary care doctor/family doctor in [place] within 1 week 3. orthopedic assistant for your neck pain and arthritis Current Hospital Diet Patient's current hospital diet: N/A, Regular Diet Discharge Diet Recommended Diet: Regular Diet Procedures Procedures Performed: 1. liver ultrasound - no evidence of liver cancer. 2. CAT scan of the neck showing significant arthritis. Pending Studies Studies pending at discharge: no Medical Emergencies . Who to Call and When: Medical Emergencies: If at any time you feel your situation is an emergency, please call 911 immediately. . Non-Emergent Contact Non-Emergency issues call your: Primary Care Provider Call Non-Emergent contact if: temperature is above 100.5, your pain is not controlled, your pain is worsening, your pain is concerning you, you have any medication questions . . "Provider Documentation" section prepared by Keith Perkins. VTE Core Measure Inpt VTE Proph given/why not?: Unfractionated heparin SQ, Treatment not indicated [place] Drug Monitoring Program Search Results: patient reviewed within database, no issues identified
[2016-11-03 09:59] VITALS: BP 148/84; PULSE 53; TEMP 36.4; O2SAT 98
--- NOTE | 2016-11-03 13:24 | Discharge Summary ---
Discharge Summary Date of Service Nov 03, 2016. Discharge Summary Admission Date: Oct 31, 2016 at 17:40 Discharge Date: Nov 03, 2016 Discharge Disposition: Home Principal Diagnosis: rhabdomyolysis - resolved; unclear etiology Problems/Secondary Diagnoses: 1. vitamin D deficiency 2. abnormal LFTs - resolving, possibly 2nd to illicit substances, HepC, etc 3. mild thrombocytopenia 4. cervical spine DJD 5. polysubstance abuse with tox screen + for THC, amphetamines 6. prior h/o drug abuse 7. b/l arm paresthesias, possibly 2nd to #4 8. acute kidney injury 9. chronic hepatitis C 10. question of mild cognitive impairment vs intellectual disability vs other 11. acute sinusitis - resolved 12. COPD Procedures: 1. RUQ u/s: FINDINGS: Gallbladder is normal. Common bile duct 6 mm. Liver is uniform. Pancreas and right kidney are unremarkable. 2. cervical spine CT: IMPRESSION: 1. No acute cervical spine fracture or subluxation. 2. Mild multilevel degenerative disc disease and facet arthrosis of the cervical spine, most pronounced at C6-C7. Suboptimal evaluation of the central canal and neural foramen due to CT technique. Suspected mild to moderate central canal stenosis at C6-C7. Medication Reconciliation New Medications: Naproxen (Naprosyn) 500 Mg Tab 500 MG PO BID PRN for neck pain, #20 TAB 0 Refills Omeprazole (Prilosec) 40 Mg Cap 40 MG PO DAILY, #30 CAP 1 Refill Sulfamethoxazole-Trimethoprim (Bactrim Ds 800MG/160MG) 1 Tab Tab 1 TAB PO BID for 4 Days, #8 TAB 0 Refills Tramadol (Ultram) 50 Mg Tab 50 MG PO Q6H PRN for Pain, #20 TAB 0 Refills Albuterol (Ventolin Hfa) 60 Puffs/5400 Mcg Aers 2 PUFFS INH Q6H PRN for cough, wheezing, #1 Ergocalciferol (Vitamin D) 50,000 Interunit Cap 34330 INTERUNIT PO Wed/Sat, #8 CAP 1 Refill Discharge Exam Physical Exam: General Appearance: WD/WN, no apparent distress ENT: pharynx normal, + pertinent finding (poor dentition ) Neck: no JVD Respiratory/Chest: no respiratory distress, no accessory muscle use, + wheezing (scant end-exp wheeze) Cardiovascular: regular rate, rhythm, no gallop, no murmur, normal peripheral pulses Abdomen / GI: normal bowel sounds, non tender, soft, + hepatomegaly, + splenomegaly Extremities: no pedal edema Neurologic/Psychiatric: no motor/sensory deficits (of arms/legs), alert, normal reflexes (of arms/legs), oriented x 3 Skin: + pertinent finding (numerous tattoos) Hospital Course HISTORY OF PRESENT ILLNESS: Mr. Lee is a 51-year-old male with history of polysubstance abuse who presented to the Emergency Department with multiple complaints beginning approximately 1 day ago. His story was difficult to follow as the patient stated that he had seen many doctors at many different hospitals over the last 1 -2 years including [facility], [facility], and even a hospital in the [facility]. The patient stated that most of his problems, he believes, originated from his previous years of substance abuse. The patient claimed to be clean since he left [facility] in [place]. The patient was seen in our ER approximately 1 week ago with a workup which was unremarkable. He was discharged home. During that evaluation, the patient had a CT scan of his head, chest x-ray, serologies and was discharged with pain medication and recommended to follow up with his family physician. On the day of admission in the Emergency Department the patient had a liver function panel showing an AST of 175. LFTs drawn a week prior were normal. CPK level was 2866 but troponin was normal. Tox screen was positive for opiates , THC, and amphetamines. He was admitted with a diagnosis of rhabdomyolysis. HOSPITAL COURSE: 1. rhabdomyolysis - the etiology of this was unclear as there was no report of a fall, injury, trauma, heavy exercise, etc. He adamantly denied substance abuse. No history of recent seizure activity. He had not taken any statin agent or other prescription medications known to cause rhabdomyolysis. It is possible the CPK elevation was due to a viral process as he had mild fevers at the beginning of this hospitalization. If he had in fact been using methamphetamines this could have caused his rhabdomyolysis as well. I am very suspicious this could have been the case. (see #6 below) His CPK completely normalized with IVF. 2. acute kidney injury - likely 2nd to #1 - resolved. Discharge Cr was 0.8. 3. neck pain - patient could not tolerate an MRI due to severe claustrophobia and inability to provide adequate sedation. He underwent CT cervical spine (non-contrast due to apparent anaphylaxis to iodine) with results as noted above. I do believe that his neck pain and arm paresthesias is from the C6-C7 disease. He will be set up with Dr. Rosenbaum from orthopedics for management of this issue. A short course of tramadol and naprosyn were given at discharge. 4. b/l arm paresthesias - likely 2nd to DJD of C-spine. Outpatient orthopedic follow-up has been arranged. Vitamin B12 level was normal, Lyme's was negative, HIV was negative, and TSH was normal. 5. abnormal LFTs - uncertain etiology but his AST/ALT improved during his stay with supportive care measures. 2nd to Drug abuse? etoh abuse? other? LFTs in October 2015 (seen in [facility] office records) were also mildly high. Suspect he has baseline element of transaminitis from chronic hepC infection. LFTs will need to be repeated as an outpatient for stability. 6. polysubstance abuse - the patient adamantly denied illicit drug use but his tox screen was positive for THC and amphetamines. He is not on wellbutrin or ADHD medications that could cause the amphetamines to be positive. If the confirmatory testing for amphetamines is in fact positive it is quite concerning he could be using crystal meth (he has h/o such in the past). 7. h/o HepC - office records were reviewed and in October 2015 he was seen by [facility] infectious disease for the HepC. At that time his viral load was nearly 1 million. Treatment was offered but he was lost to follow-up. The patient is agreeable to referral to infectious disease for the HepC. See appointment information below. On examination his liver and spleen both felt enlarged. RUQ u/s did not show features of cirrhosis. The patient refused ultrasound of the spleen. The hepatomegaly may have been from the acute transaminitis/hepatitis. 8. sinusitis - this was seen on recent head CT. He received 3 days of levaquin while here and he will take 4 additional days of antibiotics at home. 9. h/o weight loss and chronic abdominal complaints - the patient's daughter reported he had had some type of emergency surgery on his stomach at a hospital in [place], [place] sometime in the last year. The patient stated he did NOT have surgery but could not give details as to what he had done at that hospital. He had an EGD at [facility] in 2015 showing gastritis but the EGD was otherwise normal. In October 2015 his weight was about 250 pounds according to office records, and his weight during this hospitalization was about 250 pounds as well. He will remain on PPI therapy. Again he will need referral to infectious disease for the HepC. 10. vitamin D deficiency - level was 13. He was prescribed ergocalciferol 44875 units twice weekly x 8 weeks. This could be contributing to some of his chronic complaints. 11. social - the patient was a very poor historian and often contradicted himself numerous times throughout the stay. I counseled him on the importance of following up with a single family physician who can help coordinate his care. I counseled him on the importance of keeping appointments and compliance with recommendations. Total Time Spent: Greater than 30 minutes This includes examination of the patient, discharge planning, medication reconciliation, and communication with other providers. Discharge Instructions Please refer to the electronic Patient Visit Report (Discharge Instructions) for additional information. Follow-Up 1. Dr. Bakari El - [facility] - TuesdayNovember 17 at 1:[address] Hilda Wright - [facility] Infectious Disease - November 18 at 10:00 am. This is for consideration of HepC treatment. 3. Dr. Magan Rosenbaum - orthopedics - TuesdayNovember 12 at 2:40 pm. Additional Copies To Hilda Wright., Lili.Kimberly.; Bakari El M.D.; Magan Rosenbaum, DO
[2016-11-03 14:09] LABS: COD UR NEGATIVE NG/ML (CUTOFF=50); HYDROCOD UR NEGATIVE NG/ML (CUTOFF=50); HYDROMOR UR 418 NG/ML (CUTOFF=50); MORPHINE UR NEGATIVE NG/ML (CUTOFF=50); NORHYDROCODONE CONF UR NEGATIVE NG/ML (CUTOFF=50); OXYMORPH UR NEGATIVE NG/ML (CUTOFF=50)
[2016-11-04 05:28] LABS: HEPATITIS C RNA TMA QUAL Detected
== END 2016-11-03 13:34 | disposition home or self-care (01) | DRG 558 ==
LOC: ENRESERVDT → ENRESERVTM → C.EDB 13:14 → C.MS4W 17:40 → EDBEDREQ 17:41
PROVIDERS: ADMIT Internal Medicine; ATTEND Internal Medicine
DX: M62.82 Rhabdomyolysis (principal); N17.9 Acute kidney failure, unspecified; J44.9 Chronic obstructive pulmonary disease, unspecified; B18.2 Chronic viral hepatitis C; J01.90 Acute sinusitis, unspecified; F10.10 Alcohol abuse, uncomplicated; B34.9 Viral infection, unspecified; D69.6 Thrombocytopenia, unspecified; E55.9 Vitamin D deficiency, unspecified; R94.5 Abnormal results of liver function studies; M50.30 Other cervical disc degeneration, unspecified cervical region; F19.10 Other psychoactive substance abuse, uncomplicated; F15.10 Other stimulant abuse, uncomplicated; F12.90 Cannabis use, unspecified, uncomplicated; R20.8 Other disturbances of skin sensation; G31.84 Mild cognitive impairment of uncertain or unknown etiology; F79 Unspecified intellectual disabilities; R50.9 Fever, unspecified; R79.89 Other specified abnormal findings of blood chemistry; F17.200 Nicotine dependence, unspecified, uncomplicated; R74.0 Nonspecific elevation of levels of transaminase and lactic acid dehydrogenase [LDH]

== ENCOUNTER 2017-03-20 19:56 | Emergency (ER) | payer SELFPAY ==
[~2017-03-20] VITALS: Ht 195.6 cm; Wt 121.2 kg
[~2017-03-20 19:56] MED LIST changes: +NAPR-1169 PO; +OMEP40CA41 PO; -OXYC1TAB3 PO; +PRVHFAIN INH; +SULF800T23 PO; +TRAM-10 PO; +VTMD PO
[2017-03-20 20:00] VITALS: TEMP 36.5; Ht 195.6 cm; Wt 121.2 kg
[2017-03-20] MEDS ORDERED: SODIUM CHLORIDE 0.9% 1000ML 1,000 ML IV STA (20:14)
[2017-03-20] MEDS ORDERED: KETOROLAC TROMETHAMINE 30 MG/ML VIAL IV STA (20:14)
[2017-03-20] MEDS ORDERED: ASPIRIN 81 MG CHEW PO STA (20:14)
[2017-03-20] MEDS ORDERED: ONDANSETRON INJ 2 MG/ML 2 ML VIAL IV STA (20:14)
[2017-03-20 20:32] LABS: BASO % 1.3 %; BASO ABS # 0.12 K/uL (0-0.2); COMPLETE YES; EOS % 5.3 %; HEMATOCRIT 42.1 % (42-52); IG% 0.1 %; LYMPH % 46.9 %; LYMPH ABS # 4.34 K/uL (1.2-3.4); MEAN CELL VOLUME 90.7 fL (80-100); MEAN CORPUSCULAR HEMOGLOBIN 30.2 pg (25-34); MEAN CORPUSCULAR HGB CONC 33.3 g/dl (32-36); MEAN PLATELET VOLUME 10.7 fL (7.4-10.4); MONO % 5.6 %; NEUT % 40.8 %; PLATELET COUNT 192 K/uL (130-400); RED BLOOD COUNT 4.64 M/uL (4.7-6.1); WHITE BLOOD COUNT 9.26 K/uL (4.8-10.8)
[2017-03-20] MEDS ORDERED: PRLSR20 PO (20:34)
--- NOTE | 2017-03-20 20:34 | DIAGNOSTIC IMAGING REPORT ---
CHEST ONE VIEW PORTABLE CLINICAL HISTORY: ABDOMINAL PAIN/GI pain COMPARISON STUDY: 10/31/2016 FINDINGS: The bones soft tissues and hemidiaphragms are normal. The cardiomediastinal silhouette is normal. The lungs are clear. The pulmonary vasculature is normal. IMPRESSION: Negative chest. The above report was generated using voice recognition software. It may contain grammatical, syntax or spelling errors. Electronically signed by: Forest Manning M.D. 03/20/2017 8:33 PM Dictated Date/Time: 03/20/2017 8:33 PM
[2017-03-20] MEDS: ACETAMINOPHEN 500 MG TAB PO STA ×2 (20:38→20:43)
[2017-03-20 20:45] LABS: PROTHROMBIN TIME (PATIENT) 10.7 SECONDS (9.0-12.0)
[2017-03-20 20:49] LABS: ALT/SGPT 120 U/L (12-78); AST/SGOT 65 U/L (15-37); BLOOD UREA NITROGEN 9 mg/dl (7-18); CALCIUM 8.5 mg/dl (8.5-10.1); CARBON DIOXIDE 28 mmol/L (21-32); CHLORIDE 108 mmol/L (98-107); GLUCOSE 91 mg/dl (70-99); POTASSIUM 3.7 mmol/L (3.5-5.1); SODIUM 144 mmol/L (136-145)
[2017-03-20 20:55] LABS: ALKALINE PHOSPHATASE 93 U/L (45-117)
--- NOTE | 2017-03-20 21:44 | EMERGENCY ROOM VISIT NOTE ---
History Report prepared by Jaren: Little Gagnon Under the Supervision of: Dr. Len Stephen D.O. First contact with patient: 20:04 Chief Complaint: CHEST PAIN Stated Complaint: CHEST PAIN,SHORT OF BREATH History of Present Illness The patient is a 51 year old male who presents to the Emergency Room with complaints of persistent chest pain starting 1.5 hours ago. His symptoms started with pain in his right side which he often gets. He then started having chest pain with tingling and coldness in his left arm. He notes that his vision is abnormal and he feels like he is "walking sideways". He has nausea and SOB. He also notes cysts which have been developing on his back. He has a history of pleurisy. He had a stress test 2 years ago. He does smoke. Source of History: patient Onset: 1.5 hours ago Position: chest Quality: other (pain) Timing: other (persistent) Associated Symptoms: + SOB, + nausea Note: Pt reports vision changes, right side pain. Review of Systems See HPI for pertinent positives & negatives. A total of 10 systems reviewed and were otherwise negative. Past Medical & Surgical Medical Problems: (1) Alcohol abuse (2) Asthma (3) Asthma, Unspecified (4) Drug abuse (5) Elevated CK (6) Esophageal Reflux (7) GERD (gastroesophageal reflux disease) (8) Hepatitis C (9) Hepatitis C (10) History of drug abuse (11) Intractable abdominal pain (12) Tobacco abuse Surgical Problems: (1) H/O hernia repair Family History Heart disease FATHER, Onset:60 years & older MOTHER, Onset:60 years & older Social History Smoking Status: Never Smoker Alcohol Use: none Drug Use: none, other Marital Status: Housing Status: lives with family Occupation Status: employed Current/Historical Medications Scheduled Cephalexin Monohydrate (Keflex), 500 MG PO QID Omeprazole (Prilosec), 20 MG PO QAM Allergies Coded Allergies: Iodine (Verified Allergy, Severe, ANAPHYLAXIS, 03/20/17) Latex (Verified Allergy, Severe, ANAPHYLAXIS, 03/20/17) Penicillins (Verified Allergy, Unknown, RASH, 03/20/17) Codeine (Verified Adverse Reaction, Unknown, nausea, 03/20/17) Physical Exam Vital Signs Date Time Temp Pulse Resp B/P (MAP) Pulse Ox O2 Delivery O2 Flow Rate FiO2 03/20/17 20:19 74 03/20/17 20:00 36.5 94 18 169/95 96 Room Air Physical Exam GENERAL: Patient is awake, alert, and somewhat anxious appearing. EYES: The conjunctivae are clear. The pupils are round and reactive. EARS, NOSE, MOUTH AND THROAT: The nose is without any evidence of any deformity. Mucous membranes are moist tongue is midline NECK: The neck is nontender and supple. RESPIRATORY: Normal respiratory effort is noted there is no evidence of wheezing rhonchi or rales CARDIOVASCULAR: Regular rate and rhythm noted there no murmurs rubs or gallops normal S1 normal S2 GASTROINTESTINAL: The abdomen is soft. Bowel sounds are present in all quadrants. Abdomen is nontender MUSCULOSKELETAL/EXTREMITIES: There is no evidence of gross deformity full range of motion is noted in the hips and shoulders SKIN: There is no obvious evidence of any rash. There are no petechiae, pallor or cyanosis noted. NEUROLOGIC: Patient is awake alert and oriented x3 strength is symmetric patellar reflexes are 2+ bilaterally Medical Decision & Procedures ER Provider Diagnostic Interpretation: X-ray results as stated below per interpretation by me and the radiologist. CHEST ONE VIEW PORTABLE CLINICAL HISTORY: ABDOMINAL PAIN/GI pain COMPARISON STUDY: 10/31/2016 FINDINGS: The bones soft tissues and hemidiaphragms are normal. The cardiomediastinal silhouette is normal. The lungs are clear. The pulmonary vasculature is normal. IMPRESSION: Negative chest. The above report was generated using voice recognition software. It may contain grammatical, syntax or spelling errors. Electronically signed by: Forest Manning M.D. 03/20/2017 8:33 PM Dictated Date/Time: 03/20/2017 8:33 PM Laboratory Results 03/20/17 20:20 Red Blood Count 4.64, Mean Corpuscular Volume 90.7, Mean Corpuscular Hemoglobin 30.2, Mean Corpuscular Hemoglobin Concent 33.3, Mean Platelet Volume 10.7, Neutrophils (%) (Auto) 40.8, Lymphocytes (%) (Auto) 46.9, Monocytes (%) (Auto) 5.6, Eosinophils (%) (Auto) 5.3, Basophils (%) (Auto) 1.3, Neutrophils # (Auto) 3.78, Lymphocytes # (Auto) 4.34, Monocytes # (Auto) 0.52, Eosinophils # (Auto) 0.49, Basophils # (Auto) 0.12 03/20/17 20:20 Test 03/20/17 20:20 White Blood Count 9.26 K/uL (4.8-10.8) Red Blood Count 4.64 M/uL (4.7-6.1) Hemoglobin 14.0 g/dL (14.0-18.0) Hematocrit 42.1 % (42-52) Mean Corpuscular Volume 90.7 fL (80-100) Mean Corpuscular Hemoglobin 30.2 pg (25-34) Mean Corpuscular Hemoglobin Concent 33.3 g/dl (32-36) Platelet Count 192 K/uL (130-400) Mean Platelet Volume 10.7 fL (7.4-10.4) Neutrophils (%) (Auto) 40.8 % Lymphocytes (%) (Auto) 46.9 % Monocytes (%) (Auto) 5.6 % Eosinophils (%) (Auto) 5.3 % Basophils (%) (Auto) 1.3 % Neutrophils # (Auto) 3.78 K/uL (1.4-6.5) Lymphocytes # (Auto) 4.34 K/uL (1.2-3.4) Monocytes # (Auto) 0.52 K/uL (0.11-0.59) Eosinophils # (Auto) 0.49 K/uL (0-0.5) Basophils # (Auto) 0.12 K/uL (0-0.2) RDW Standard Deviation 42.1 fL (36.4-46.3) RDW Coefficient of Variation 12.7 % (11.5-14.5) Immature Granulocyte % (Auto) 0.1 % Immature Granulocyte # (Auto) 0.01 K/uL (0.00-0.02) Prothrombin Time 10.7 SECONDS (9.0-12.0) Prothromb Time International Ratio 1.0 (0.9-1.1) Activated Partial Thromboplast Time 26.8 SECONDS (21.0-31.0) Partial Thromboplastin Ratio 1.0 Anion Gap 8.0 mmol/L (3-11) Est Creatinine Clear Calc Drug Dose 140.0 ml/min Estimated GFR () 114.2 Estimated GFR (Non- 98.5 BUN/Creatinine Ratio 10.0 (10-20) Calcium Level 8.5 mg/dl (8.5-10.1) Total Bilirubin 0.2 mg/dl (0.2-1) Direct Bilirubin < 0.1 mg/dl (0-0.2) Aspartate Amino Transf (AST/SGOT) 65 U/L (15-37) Alanine Aminotransferase (ALT/SGPT) 120 U/L (12-78) Alkaline Phosphatase 93 U/L (45-117) Total Creatine Kinase 137 U/L (39-308) Creatine Kinase MB 2.7 ng/ml (0.5-3.6) Creatine Kinase MB Ratio 2.0 (0-3.0) Troponin I < 0.015 ng/ml (0-0.045) Total Protein 7.3 gm/dl (6.4-8.2) Albumin 3.6 gm/dl (3.4-5.0) Lipase 140 U/L (73-393) Laboratory results per my review. Medications Administered Medications (Trade) Dose Ordered Sig/Savita Route Start Time Stop Time Status Last Admin Dose Admin Ketorolac Tromethamine (Toradol Inj) 30 mg NOW STAT IV 03/20/17 20:14 03/20/17 20:16 DC 03/20/17 20:38 30 MG Sodium Chloride 1,000 ml @ 999 mls/hr Q1H1M STAT IV 03/20/17 20:14 03/20/17 21:14 DC 03/20/17 20:40 999 MLS/HR Ondansetron HCl (Zofran Inj) 4 mg NOW STAT IV 03/20/17 20:14 03/20/17 20:16 DC 03/20/17 20:38 4 MG Aspirin (Aspirin Chew) 324 mg NOW STAT PO 03/20/17 20:14 03/20/17 20:16 DC 03/20/17 20:37 324 MG Oxycodone HCl (Roxicodone Immediate Rel 5MG Home Pack) 1 homepack UD ONCE PO 03/20/17 22:00 03/20/17 22:01 DC 03/20/17 22:09 1 HOMEPACK Cephalexin Monohydrate (Keflex Cap) 500 mg NOW ONCE PO 03/20/17 22:00 03/20/17 22:01 DC 03/20/17 22:09 500 MG Cephalexin Monohydrate (Keflex 500MG Home Pack) 1 homepack NOW ONCE PO 03/20/17 22:00 03/20/17 22:01 DC 03/20/17 22:09 1 HOMEPACK ECG Indication: chest pain Rate (beats per minute): 66 Rhythm: normal sinus Findings: ST depression (Lateral, Inferior), no ectopy Comparison ECG Date: 31-Oct-2016 Change: no significant change ED Course 2008: The patient was evaluated in room B9. A complete history and physical examination were performed. 2013: Aspirin 324 mg PO, Zofran Inj 4 mg IV, NSS 1000 ml @ 999 mls/hr IV, Toradol Inj 30 mg IV, Tylenol Tab 1000 mg PO. 2144: Upon reevaluation, the patient is resting comfortably. I discussed the results and treatment plan with him. He verbalized agreement of the treatment plan. He was discharged home. 2199: Cephalexin Monohydrate 1 homepack PO, Cephalexin Monohydrate 500 mg PO, Oxycodone HCl 1 homepack PO. Medical Decision Prior records/ancillary studies reviewed. Triage Nursing notes reviewed. Additional history obtained from family. The patient's history was concerning for chest pain. Differential diagnosis: Etiologies such as cardiac ischemia, aortic dissection, pulmonary embolism, pneumonia, pneumothorax, musculoskeletal, infections, pericarditis, myocarditis , esophageal rupture, gastrointestinal, as well as others were entertained. The patient is a 51-year-old male who presented to the emergency department for an evaluation of chest pain. The patient did not have any acute EKG changes compared to previous in his cardiac biomarkers were negative. The patient did not have hypoxia. He was not tachycardic. The patient was also concerned about a small area of infection on his back. This did not appear to be consistent with cellulitis or abscess but he wished to be started on antibiotic for this infection. He was encouraged to continue all medications as prescribed and rest. He was also encouraged to continue to follow-up with his primary care physician or return to the emergency department immediately if symptoms change worsen or the need arises. Medication Reconcilliation Current Medication List: was personally reviewed by me Blood Pressure Screening Patient's blood pressure: Elevated blood pressure Blood pressure disposition: Elevated BP felt to be situational Impression Primary Impression: Musculoskeletal chest pain Scribe Attestation The scribe's documentation has been prepared under my direction and personally reviewed by me in its entirety. I confirm that the note above accurately reflects all work, treatment, procedures, and medical decision making performed by me. Departure Information Dispostion Home / Self-Care Prescriptions Cephalexin Monohydrate (KEFLEX) 500 Mg Cap 500 MG PO QID, #28 CAP Prov: Len Stephen, DO 03/20/17 Referrals No Doctor, Assigned (PCP) Forms HOME CARE DOCUMENTATION FORM, IMPORTANT VISIT INFORMATION Patient Instructions ED Chest Pain Atypical Unkn Cause, My [facility] Additional Instructions Call your doctor to schedule a follow-up appointment. Rest and avoid any strenuous activity.
[2017-03-20] MEDS ORDERED: CEPH500C2 PO (21:57)
[2017-03-20] MEDS ORDERED: CEPHALEXIN 500MG HOME PACK 1 EA BTL PO ONE (22:00)
[2017-03-20] MEDS ORDERED: CEPHALEXIN MONOHYDRATE 250 MG CAP PO ONE (22:00)
[2017-03-20] MEDS ORDERED: OXYCODONE IR HOME PACK PO ONE (22:00)
[2017-03-20 22:14] VITALS: BP 101/85; PULSE 72; O2SAT 96
== END 2017-03-20 22:17 | disposition home or self-care (01) ==
LOC: C.EDB 19:58
DX: R07.89 Other chest pain (principal); R06.02 Shortness of breath; R11.0 Nausea; K21.9 Gastro-esophageal reflux disease without esophagitis; J45.909 Unspecified asthma, uncomplicated; Z79.899 Other long term (current) drug therapy; Z82.49 Family history of ischemic heart disease and other diseases of the circulatory system

== ENCOUNTER 2017-10-03 14:20 | Emergency (ER) | payer SELFPAY ==
[~2017-10-03] VITALS: Ht 195.6 cm; Wt 117.3 kg
[~2017-10-03 14:20] MED LIST changes: -NAPR-1169 PO; -OMEP40CA41 PO; +PRLSR20 PO; -PRVHFAIN INH; -SULF800T23 PO; -TRAM-10 PO; -VTMD PO
[2017-10-03 14:28] VITALS: TEMP 36.7; Ht 195.6 cm; Wt 117.3 kg
[2017-10-03 14:42] VITALS: O2SAT 97
[2017-10-03] MEDS ORDERED: ASPIRIN 81 MG CHEW PO STA (14:46)
[2017-10-03] MEDS ORDERED: SODIUM CHLORIDE 0.9% 1000ML 1,000 ML IV STA (14:46)
[2017-10-03] MEDS ORDERED: KETOROLAC TROMETHAMINE 30 MG/ML VIAL IV STA (14:46)
--- NOTE | 2017-10-03 15:02 | DIAGNOSTIC IMAGING REPORT ---
CHEST ONE VIEW PORTABLE CLINICAL HISTORY: Chest Pain pain. Dyspnea. COMPARISON STUDY: 03/20/2017 FINDINGS: The bones soft tissues and hemidiaphragms are normal. The cardiomediastinal silhouette is normal. The lungs are clear. The pulmonary vasculature is normal. IMPRESSION: Negative chest. The above report was generated using voice recognition software. It may contain grammatical, syntax or spelling errors. Electronically signed by: Forest Manning M.D. 10/03/2017 3:01 PM Dictated Date/Time: 10/03/2017 3:00 PM
[2017-10-03] MEDS: NITROGLYCERIN 0.4 MG SL PER TAB CHARGE SL PRN ×2 (15:16→15:27)
[2017-10-03 15:29] LABS: BASO % 1.6 %; BASO ABS # 0.13 K/uL (0-0.2); EOS % 5.5 %; EOS ABS # 0.44 K/uL (0-0.5); HEMOGLOBIN 13.9 g/dL (14.0-18.0); IG# 0.01 K/uL (0.00-0.02); LYMPH % 43.7 %; LYMPH ABS # 3.49 K/uL (1.2-3.4); MEAN CELL VOLUME 92.8 fL (80-100); MEAN CORPUSCULAR HEMOGLOBIN 32.3 pg (25-34); MEAN CORPUSCULAR HGB CONC 34.8 g/dl (32-36); MEAN PLATELET VOLUME 10.9 fL (7.4-10.4); MONO % 4.6 %; MONO ABS # 0.37 K/uL (0.11-0.59); NEUT % 44.5 %; NEUT ABS # 3.54 K/uL (1.4-6.5); PLATELET COUNT 157 K/uL (130-400); RED CELL DISTRIBUTION WIDTH CV 13.5 % (11.5-14.5); RED CELL DISTRIBUTION WIDTH SD 46.3 fL (36.4-46.3); WHITE BLOOD COUNT 7.98 K/uL (4.8-10.8)
[2017-10-03 15:46] LABS: BLOOD UREA NITROGEN 13 mg/dl (7-18); CALCIUM 8.9 mg/dl (8.5-10.1); CARBON DIOXIDE 32 mmol/L (21-32); GLUCOSE 107 mg/dl (70-99); POTASSIUM 3.8 mmol/L (3.5-5.1); SODIUM 142 mmol/L (136-145)
[2017-10-03] MEDS ORDERED: MoRPHine SULFATE 10 MG/ML CARP/VIAL IV STA (15:48)
[2017-10-03 15:51] LABS: CKMB 1.2 ng/ml (0.5-3.6)
[2017-10-03] MEDS ORDERED: MoRPHine SULFATE 2 MG/ML CARP ONE (15:53)
[2017-10-03] MEDS ORDERED: MoRPHine SULFATE 4 MG/ML 1 ML CARP\\VIAL ONE (15:54)
[2017-10-03 18:04] VITALS: BP 163/121; PULSE 78; O2SAT 99
--- NOTE | 2017-10-03 18:20 | Medical Consult ---
Consultation Date of Consultation: Oct 03, 2017. Attending Physician: Reason for Consultation: Chest pain History of Present Illness 52 years old man with history of HCV presented to the ED with recurrent left- sided chest pain. Patient said that he always had recurrent chest pain that's reproducible. He states that [place] the pain was worked up and was found to be not cardiac in origin. When I ask him with his last stress test he said 2 years ago. Patient stated the usually gave him steroids and pain medications and they sent him home. Yet am not sure how reliable that is because when we tried to admit the patient he absolutely refused and insisted to leave AGAINST MEDICAL ADVICE Past Medical/Surgical History Medical Problems: (1) Asthma, Unspecified Status: Chronic (2) Esophageal Reflux Status: Chronic (3) Headache Status: Acute (4) Hepatitis C Status: Chronic (5) Hypertension Status: Acute (6) Musculoskeletal chest pain Status: Acute (7) Rhabdomyolysis Status: Acute (8) Weakness of extremity Status: Acute Family History Heart disease FATHER, Onset:60 years & older MOTHER, Onset:60 years & older Social History Smoking Status: Current Every Day Smoker Drug Use: none, other Marital Status: Housing Status: lives with family Occupation Status: employed Allergies Coded Allergies: Iodine (Verified Allergy, Severe, ANAPHYLAXIS, 10/03/17) Latex (Verified Allergy, Severe, ANAPHYLAXIS, 10/03/17) Penicillins (Verified Allergy, Unknown, RASH, 10/03/17) Codeine (Verified Adverse Reaction, Unknown, nausea, 10/03/17) Current Inpatient Medications Current Inpatient Medications Medications (Trade) Dose Ordered Sig/Savita Route Start Time Stop Time Status Last Admin Dose Admin Nitroglycerin (Nitrostat Tab) 0.4 mg Q5M PRN SL 10/03/17 15:00 11/02/17 14:59 10/03/17 15:27 0.4 MG Physical Exam Date Time Temp Pulse Resp B/P (MAP) Pulse Ox O2 Delivery O2 Flow Rate FiO2 10/03/17 18:04 78 20 163/121 99 10/03/17 16:48 61 20 176/89 98 Room Air 10/03/17 15:59 60 20 153/109 95 Room Air 10/03/17 15:23 65 20 154/102 96 Room Air 10/03/17 15:03 69 10/03/17 14:42 97 Room Air 10/03/17 14:28 36.7 121 20 158/101 Room Air Laboratory Results Last 24 Hours Test 10/03/17 15:15 White Blood Count 7.98 K/uL Red Blood Count 4.31 M/uL Hemoglobin 13.9 g/dL Hematocrit 40.0 % Mean Corpuscular Volume 92.8 fL Mean Corpuscular Hemoglobin 32.3 pg Mean Corpuscular Hemoglobin Concent 34.8 g/dl Platelet Count 157 K/uL Mean Platelet Volume 10.9 fL Neutrophils (%) (Auto) 44.5 % Lymphocytes (%) (Auto) 43.7 % Monocytes (%) (Auto) 4.6 % Eosinophils (%) (Auto) 5.5 % Basophils (%) (Auto) 1.6 % Neutrophils # (Auto) 3.54 K/uL Lymphocytes # (Auto) 3.49 K/uL Monocytes # (Auto) 0.37 K/uL Eosinophils # (Auto) 0.44 K/uL Basophils # (Auto) 0.13 K/uL RDW Standard Deviation 46.3 fL RDW Coefficient of Variation 13.5 % Immature Granulocyte % (Auto) 0.1 % Immature Granulocyte # (Auto) 0.01 K/uL D-Dimer < 190 ug/L FEU Sodium Level 142 mmol/L Potassium Level 3.8 mmol/L Chloride Level 104 mmol/L Carbon Dioxide Level 32 mmol/L Anion Gap 6.0 mmol/L Blood Urea Nitrogen 13 mg/dl Creatinine 0.90 mg/dl Est Creatinine Clear Calc Drug Dose 136.3 ml/min Estimated GFR () 113.4 Estimated GFR (Non- 97.9 BUN/Creatinine Ratio 14.6 Random Glucose 107 mg/dl Calcium Level 8.9 mg/dl Total Creatine Kinase 65 U/L Creatine Kinase MB 1.2 ng/ml Creatine Kinase MB Ratio 1.8 Troponin I < 0.015 ng/ml Assessment & Plan 52-year-old man presented to the emergency room with recurrent left-sided chest pain. He said that he has a pre-diagnoses with pleuritic chest pain but this time his pain was slightly different and was accompanied with numbness and both upper extremities. Unfortunately I couldn't examine the patient because he absolutely refused to stay and said that she wants to leave AGAINST MEDICAL ADVICE because he feels better. I told him that his pain could be coming from his heart and based on what she said that the last stress test was 2 years ago I told him that many things could have happened in 2 years. Yet he insisted he and I was not able to examine him. This note will not be billed
--- NOTE | 2017-10-03 21:40 | EMERGENCY ROOM VISIT NOTE ---
History Report prepared by Jaren: Douglas Bryan Under the Supervision of: Dr. Alonso Gr D.O. First contact with patient: 14:35 Chief Complaint: CHEST PAIN Stated Complaint: CHEST PAIN History of Present Illness The patient is a 52 year old male who presents to the Emergency Room with complaints of on and off stabbing and burning chest pain for the past week which worsened this morning around 1000. The patient notes that he has a history of pleurisy, and this pain feels different, and the pain comes and goes with any no activity specifically. He additionally notes that he is having bilateral arm pain, and for the past 3-4 days his hands have felt cold and numb. The patient does not have any history of heart attacks, hypertension, high cholesterol, and diabetes. Pt denies headache, change in vision, fevers, new cough, runny noise, sore throat, shortness of breath, nausea, vomiting, diarrhea, pain with urination, and melena. Patient also notes that this chest pain is different than the reproducible anterior chest wall pain that he also has. Source of History: patient Onset: week Position: chest Quality: burning, stabbing Timing: other (on and off) Associated Symptoms: No SOB Note: Associated symptoms: Arm pain Review of Systems See HPI for pertinent positives & negatives. A total of 10 systems reviewed and were otherwise negative. Past Medical & Surgical Medical Problems: (1) Alcohol abuse (2) Asthma (3) Asthma, Unspecified (4) Drug abuse (5) Elevated CK (6) Esophageal Reflux (7) GERD (gastroesophageal reflux disease) (8) Hepatitis C (9) Hepatitis C (10) History of drug abuse (11) Intractable abdominal pain (12) Tobacco abuse Surgical Problems: (1) H/O hernia repair Family History Heart disease FATHER, Onset:60 years & older MOTHER, Onset:60 years & older Social History Smoking Status: Current Every Day Smoker Alcohol Use: none Drug Use: none, other Marital Status: Housing Status: lives with family Occupation Status: employed Current/Historical Medications Scheduled Omeprazole (Prilosec), 20 MG PO QAM Allergies Coded Allergies: Iodine (Verified Allergy, Severe, ANAPHYLAXIS, 10/03/17) Latex (Verified Allergy, Severe, ANAPHYLAXIS, 10/03/17) Penicillins (Verified Allergy, Unknown, RASH, 10/03/17) Codeine (Verified Adverse Reaction, Unknown, nausea, 2/12/18) Physical Exam Vital Signs Date Time Temp Pulse Resp B/P (MAP) Pulse Ox O2 Delivery O2 Flow Rate FiO2 10/03/17 18:04 78 20 163/121 99 10/03/17 16:48 61 20 176/89 98 Room Air 10/03/17 15:59 60 20 153/109 95 Room Air 10/03/17 15:23 65 20 154/102 96 Room Air 10/03/17 15:03 69 10/03/17 14:42 97 Room Air 10/03/17 14:28 36.7 121 20 158/101 Room Air Physical Exam GENERAL: Sitting up in bed, disheveled, no acute distress EYE EXAM: normal conjunctiva. OROPHARYNX: no exudate, no erythema, lips, buccal mucosa, and tongue normal and mucous membranes are moist NECK: supple, no nuchal rigidity, no adenopathy, non-tender LUNGS: Clear to auscultation. Normal chest wall mechanics HEART: no murmurs, S1 normal and S2 normal CHEST: Acute anterior reproducible chest wall pain different than the stated complaint. ABDOMEN: abdomen soft, non-tender, normo-active bowel sounds, no masses, no rebound or guarding. BACK: Back is symmetrical on inspection and there is no deformity, no midline tenderness, no CVA tenderness. SKIN: no rashes and no bruising UPPER EXTREMITIES: Radial pulses are equal bilaterally. Upper extremities are grossly normal. LOWER EXTREMITIES: Calves are equal bilaterally. No pitting edema. NEURO EXAM: Normal sensorium, cranial nerves II-XII grossly intact, normal speech, no gross weakness of arms, no gross weakness of legs. Medical Decision & Procedures ER Provider Diagnostic Interpretation: Radiology results as stated below per my review and the radiologist's interpretation: CHEST ONE VIEW PORTABLE CLINICAL HISTORY: Chest Pain pain. Dyspnea. COMPARISON STUDY: 03/20/2017 FINDINGS: The bones soft tissues and hemidiaphragms are normal. The cardiomediastinal silhouette is normal. The lungs are clear. The pulmonary vasculature is normal. IMPRESSION: Negative chest. The above report was generated using voice recognition software. It may contain grammatical, syntax or spelling errors. Electronically signed by: Forest Manning M.D. 10/03/2017 3:01 PM Dictated Date/Time: 10/03/2017 3:00 PM Laboratory Results 10/03/17 15:15 Red Blood Count 4.31, Mean Corpuscular Volume 92.8, Mean Corpuscular Hemoglobin 32.3, Mean Corpuscular Hemoglobin Concent 34.8, Mean Platelet Volume 10.9, Neutrophils (%) (Auto) 44.5, Lymphocytes (%) (Auto) 43.7, Monocytes (%) (Auto) 4.6, Eosinophils (%) (Auto) 5.5, Basophils (%) (Auto) 1.6, Neutrophils # (Auto) 3.54, Lymphocytes # (Auto) 3.49, Monocytes # (Auto) 0.37, Eosinophils # (Auto) 0.44, Basophils # (Auto) 0.13 10/03/17 15:15 Test 10/03/17 15:15 White Blood Count 7.98 K/uL (4.8-10.8) Red Blood Count 4.31 M/uL (4.7-6.1) Hemoglobin 13.9 g/dL (14.0-18.0) Hematocrit 40.0 % (42-52) Mean Corpuscular Volume 92.8 fL (80-100) Mean Corpuscular Hemoglobin 32.3 pg (25-34) Mean Corpuscular Hemoglobin Concent 34.8 g/dl (32-36) Platelet Count 157 K/uL (130-400) Mean Platelet Volume 10.9 fL (7.4-10.4) Neutrophils (%) (Auto) 44.5 % Lymphocytes (%) (Auto) 43.7 % Monocytes (%) (Auto) 4.6 % Eosinophils (%) (Auto) 5.5 % Basophils (%) (Auto) 1.6 % Neutrophils # (Auto) 3.54 K/uL (1.4-6.5) Lymphocytes # (Auto) 3.49 K/uL (1.2-3.4) Monocytes # (Auto) 0.37 K/uL (0.11-0.59) Eosinophils # (Auto) 0.44 K/uL (0-0.5) Basophils # (Auto) 0.13 K/uL (0-0.2) RDW Standard Deviation 46.3 fL (36.4-46.3) RDW Coefficient of Variation 13.5 % (11.5-14.5) Immature Granulocyte % (Auto) 0.1 % Immature Granulocyte # (Auto) 0.01 K/uL (0.00-0.02) D-Dimer < 190 ug/L FEU (0-500) Anion Gap 6.0 mmol/L (3-11) Est Creatinine Clear Calc Drug Dose 136.3 ml/min Estimated GFR () 113.4 Estimated GFR (Non- 97.9 BUN/Creatinine Ratio 14.6 (10-20) Calcium Level 8.9 mg/dl (8.5-10.1) Total Creatine Kinase 65 U/L (39-308) Creatine Kinase MB 1.2 ng/ml (0.5-3.6) Creatine Kinase MB Ratio 1.8 (0-3.0) Troponin I < 0.015 ng/ml (0-0.045) Laboratory results per my review. Medications Administered Medications (Trade) Dose Ordered Sig/Savita Route Start Time Stop Time Status Last Admin Dose Admin Aspirin (Aspirin Chew) 324 mg NOW STAT PO 10/03/17 14:46 10/03/17 14:48 DC 10/03/17 15:15 324 MG Nitroglycerin (Nitrostat Tab) 0.4 mg Q5M PRN SL 10/03/17 15:00 10/03/17 18:21 DC 10/03/17 15:27 0.4 MG Ketorolac Tromethamine (Toradol Inj) 30 mg NOW STAT IV 10/03/17 14:46 10/03/17 14:48 DC 10/03/17 15:15 30 MG Sodium Chloride 1,000 ml @ 999 mls/hr Q1H1M STAT IV 10/03/17 14:46 10/03/17 15:46 DC 10/03/17 15:20 999 MLS/HR Morphine Sulfate (MoRPHine SULFATE INJ) 2 mg STK-MED ONCE .ROUTE 10/03/17 15:53 10/03/17 15:54 DC 10/03/17 15:57 2 MG Morphine Sulfate (MoRPHine SULFATE INJ) 4 mg STK-MED ONCE .ROUTE 10/03/17 15:54 10/03/17 15:55 DC 10/03/17 15:56 4 MG ECG Indication: chest pain Rate (beats per minute): 59 Rhythm: sinus bradycardia Findings: left axis deviation Comparison ECG Date: 03/20/17 Change: no significant change Change: Patient's EKG interpreted by me. ED Course ED COURSE: Vital signs were reviewed and showed tachycardia and situational hypertension. The patients medical record was reviewed The above diagnostic studies were performed and reviewed. ED treatments and interventions as stated above. 1435: The patient was evaluated in room B11. A complete history and physical examination was performed. 1446: Sodium Chloride 1000 ml @ 999 mls/hr IV, Toradol 30mg IV, Aspirin 324mg PO 1500: Nitroglycerin 0.4mg SL 1553: Morphine Sulfate 2mg IV 1554: Morphine Sulfate 4mg IV 1606: Upon reevaluation, the patient is feeling a little batter after getting pain medications.I discussed my findings with the patient and he understands and agrees with the treatment plan. Based on the patients age, coexisting illnesses, exam and lab findings the decision to treat as an inpatient was made. The patient remained stable while under my care. The patient will be evaluated for further management. 1636: I reviewed the patient's case with Dr. [place]rickson [place] [facility] [place]. He will evaluate the patient for further management. Medical Decision Differential diagnoses includes but is not limited to acute coronary syndrome, myocardial infarction, pericarditis, pulmonary embolus, aortic dissection, pneumonia, pneumothorax, musculoskeletal, shingles, esophageal. Patient is a 52-year-old male who presents to ER for chest pain. History of pleurisy and has chronic chest pain secondary to this. He also has anterior chest wall pain which is different than his stated complaint. His current complaint troponin is a different type chest pain associated with arm pain and shortness of breath. Patient was given nitroglycerin and aspirin without significant improvement of his pain. He was given morphine which did help resolve his chest pain. CBC along with BMP and troponin were negative. D- dimer was negative. Chest x-ray unremarkable. EKG was not ischemic. Based on symptoms I did elect to discuss case with internal medicine. They evaluated him at bedside including the first year resident and the attending. At that time the patient decided to leave. I explained risk and benefits. He did not appear to be intoxicated was able to have a coherent conversation. He does not want to say as he had to do with family matters at home. Patient signed out following informed refusal of care. Discussed with Pt concerning signs and symptoms to watch out for. Pt was instructed to follow up with their PCP and discussed with the patient their option to return to the ED at anytime for persistent or worsening symptoms. The appropriate anticipatory guidance and out- patient management, including indications for return to the emergency department , were explained at length to the patient and understood. Medication Reconcilliation Current Medication List: was personally reviewed by me Blood Pressure Screening Patient's blood pressure: Elevated blood pressure Blood pressure disposition: Elevated BP felt to be situational Monitored by the hospitalist Consults Time Called: 1630 Consulting Physician: Dr. Hendrickson Returned Call: 1636 I reviewed the patient's case with Dr. Hendrickson - [facility] [place]. He will evaluate the patient for further management. Impression Primary Impression: Precordial chest pain Scribe Attestation The scribe's documentation has been prepared under my direction and personally reviewed by me in its entirety. I confirm that the note above accurately reflects all work, treatment, procedures, and medical decision making performed by me. Departure Information Dispostion Being Evaluated By Hospitalist Referrals No Doctor, Assigned (PCP) Patient Instructions My [facility]
== END 2017-10-03 18:05 | disposition left against medical advice (07) ==
LOC: C.EDB 14:22
DX: R07.2 Precordial pain (principal); Z53.21 Procedure and treatment not carried out due to patient leaving prior to being seen by health care provider; I10 Essential (primary) hypertension; F17.200 Nicotine dependence, unspecified, uncomplicated; Z91.048 Other nonmedicinal substance allergy status; Z91.040 Latex allergy status; Z88.0 Allergy status to penicillin; Z88.5 Allergy status to narcotic agent; Z82.49 Family history of ischemic heart disease and other diseases of the circulatory system

== ENCOUNTER 2017-10-07 13:38 | Observation (INO) | payer SELFPAY ==
[~2017-10-07] VITALS: Ht 195.6 cm; Wt 116.1 kg
--- NOTE | 2017-10-07 15:56 | EMERGENCY ROOM VISIT NOTE ---
History Report prepared by Jaren: Stacy Lemus Under the Supervision of: Dr. Len Stephen D.O. First contact with patient: 15:37 Chief Complaint: CHEST PAIN Stated Complaint: CHEST PAIN Nursing Triage Summary: Pt states cp started last night, denies n/v, states pain a 9 out of 10, states he has a hx of pluersy, but this does not feel like that. Pt a/ox4, c/o left arm numbness and radiates into neck and left side of face. skin w/d/i, Lungs decreased at bases. History of Present Illness The patient is a 52 year old male who presents to the Emergency Room with complaints of chest discomfort. The patient describes chest discomfort that has been ongoing for the last few days. He states that he has had chest pain similar in the past but it is worsened recently. He was seen in our facility 4 days ago and it was recommended that he stay in the hospital for further workup however the patient did not wish to stay in the hospital. He states he has had pleurisy in the past and feels that this is different. He denies having any nausea or vomiting. He states that he has no shortness of breath. He states the pain radiates to his neck as well as his left shoulder. The patient has not had a cardiac catheterization. He states the pain is severe and describes as a burning. Source of History: patient Onset: last few days Position: chest Symptom Intensity: severe Quality: burning Timing: worsening Associated Symptoms: + neck pain, No SOB, No nausea, No vomiting Note: Positive radiating left shoulder pain. Review of Systems See HPI for pertinent positives & negatives. A total of 10 systems reviewed and were otherwise negative. Past Medical & Surgical Medical Problems: (1) Alcohol abuse (2) Asthma (3) Asthma, Unspecified (4) Drug abuse (5) Elevated CK (6) Esophageal Reflux (7) GERD (gastroesophageal reflux disease) (8) Hepatitis C (9) Hepatitis C (10) History of drug abuse (11) Intractable abdominal pain (12) Tobacco abuse Surgical Problems: (1) H/O hernia repair Family History Heart disease FATHER, Onset:60 years & older MOTHER, Onset:60 years & older Social History Smoking Status: Current Every Day Smoker Alcohol Use: none Drug Use: none, other Marital Status: Housing Status: lives with family Occupation Status: employed Current/Historical Medications Scheduled Omeprazole (Prilosec), 20 MG PO QAM Scheduled PRN Albuterol Hfa (Ventolin Hfa), 2 PUFFS INH Q6H PRN for SOB/Wheezing Allergies Coded Allergies: Iodine (Verified Allergy, Severe, ANAPHYLAXIS, 10/03/17) Latex (Verified Allergy, Severe, ANAPHYLAXIS, 10/03/17) Penicillins (Verified Allergy, Unknown, RASH, 10/03/17) Codeine (Verified Adverse Reaction, Unknown, nausea, 10/03/17) Physical Exam Vital Signs Date Time Temp Pulse Resp B/P (MAP) Pulse Ox O2 Delivery O2 Flow Rate FiO2 10/07/17 18:17 64 18 153/94 98 Room Air 10/07/17 17:26 57 10/07/17 17:12 55 18 145/86 97 Room Air 10/07/17 15:53 53 18 166/95 98 Nasal Cannula 2.0 10/07/17 15:43 99 Nasal Cannula 2.0 10/07/17 15:43 96 Room Air 10/07/17 15:43 99 Nasal Cannula 2.0 10/07/17 13:47 36.7 64 16 194/86 100 Room Air Physical Exam GENERAL: Patient is awake alert in no acute distress patient is resting comfortably and showing no signs of anxiety EYES: The conjunctivae are clear. The pupils are round and reactive. EARS, NOSE, MOUTH AND THROAT: The nose is without any evidence of any deformity. Mucous membranes are moist tongue is midline NECK: The neck is nontender and supple. RESPIRATORY: Normal respiratory effort is noted there is no evidence of wheezing rhonchi or rales CARDIOVASCULAR: Regular rate and rhythm noted there no murmurs rubs or gallops normal S1 normal S2 GASTROINTESTINAL: The abdomen is soft. Bowel sounds are present in all quadrants. Abdomen is nontender MUSCULOSKELETAL/EXTREMITIES: There is no evidence of gross deformity full range of motion is noted in the hips and shoulders SKIN: There is no obvious evidence of any rash. There are no petechiae, pallor or cyanosis noted. NEUROLOGIC: Patient is awake alert and oriented x3. Medical Decision & Procedures ER Provider Diagnostic Interpretation: Radiology results as stated below per my review and radiologist interpretation: CHEST ONE VIEW PORTABLE CLINICAL HISTORY: 52 years-old Male presenting with CHEST PAIN. TECHNIQUE: Portable upright AP view of the chest was obtained. COMPARISON: 10/03/2017. FINDINGS: Atherosclerosis of the aortic arch. Cardiac silhouette normal in size. Mildly prominent pulmonary vasculature. Lungs and pleural spaces clear. Osseous structures normal. Upper abdomen normal. IMPRESSION: 1. No acute cardiopulmonary disease. Electronically signed by: Abdifatah Roy M.D. 10/07/2017 3:56 PM Dictated Date/Time: 10/07/2017 3:56 PM Laboratory Results 10/07/17 15:42 Red Blood Count 4.23, Mean Corpuscular Volume 91.3, Mean Corpuscular Hemoglobin 32.2, Mean Corpuscular Hemoglobin Concent 35.2, Mean Platelet Volume 10.8, Neutrophils (%) (Auto) 60.6, Lymphocytes (%) (Auto) 30.4, Monocytes (%) (Auto) 5.5, Eosinophils (%) (Auto) 2.4, Basophils (%) (Auto) 0.9, Neutrophils # (Auto) 5.97, Lymphocytes # (Auto) 3.00, Monocytes # (Auto) 0.54, Eosinophils # (Auto) 0.24, Basophils # (Auto) 0.09 10/07/17 15:42 Test 10/07/17 15:42 White Blood Count 9.86 K/uL (4.8-10.8) Red Blood Count 4.23 M/uL (4.7-6.1) Hemoglobin 13.6 g/dL (14.0-18.0) Hematocrit 38.6 % (42-52) Mean Corpuscular Volume 91.3 fL (80-100) Mean Corpuscular Hemoglobin 32.2 pg (25-34) Mean Corpuscular Hemoglobin Concent 35.2 g/dl (32-36) Platelet Count 138 K/uL (130-400) Mean Platelet Volume 10.8 fL (7.4-10.4) Neutrophils (%) (Auto) 60.6 % Lymphocytes (%) (Auto) 30.4 % Monocytes (%) (Auto) 5.5 % Eosinophils (%) (Auto) 2.4 % Basophils (%) (Auto) 0.9 % Neutrophils # (Auto) 5.97 K/uL (1.4-6.5) Lymphocytes # (Auto) 3.00 K/uL (1.2-3.4) Monocytes # (Auto) 0.54 K/uL (0.11-0.59) Eosinophils # (Auto) 0.24 K/uL (0-0.5) Basophils # (Auto) 0.09 K/uL (0-0.2) RDW Standard Deviation 44.9 fL (36.4-46.3) RDW Coefficient of Variation 13.5 % (11.5-14.5) Immature Granulocyte % (Auto) 0.2 % Immature Granulocyte # (Auto) 0.02 K/uL (0.00-0.02) Erythrocyte Sedimentation Rate 13 mm/hr (0-14) Prothrombin Time 10.7 SECONDS (9.0-12.0) Prothromb Time International Ratio 1.0 (0.9-1.1) Activated Partial Thromboplast Time 25.7 SECONDS (21.0-31.0) Partial Thromboplastin Ratio 1.0 Anion Gap 8.0 mmol/L (3-11) Est Creatinine Clear Calc Drug Dose 141.3 ml/min Estimated GFR () 116.1 Estimated GFR (Non- 100.2 BUN/Creatinine Ratio 10.9 (10-20) Calcium Level 8.8 mg/dl (8.5-10.1) Total Bilirubin 0.4 mg/dl (0.2-1) Direct Bilirubin 0.1 mg/dl (0-0.2) Aspartate Amino Transf (AST/SGOT) 54 U/L (15-37) Alanine Aminotransferase (ALT/SGPT) 98 U/L (12-78) Alkaline Phosphatase 85 U/L (45-117) Total Creatine Kinase 78 U/L (39-308) Creatine Kinase MB 1.0 ng/ml (0.5-3.6) Creatine Kinase MB Ratio 1.3 (0-3.0) Troponin I < 0.015 ng/ml (0-0.045) C-Reactive Protein < 0.29 mg/dl (0-0.29) Total Protein 7.6 gm/dl (6.4-8.2) Albumin 3.6 gm/dl (3.4-5.0) Triglycerides Level 62 mg/dl (0-150) Cholesterol Level 148 mg/dl (0-200) HDL Cholesterol 59 mg/dl LDL Cholesterol, Calculated 77 mg/dl VLDL Cholesterol, Calculated 12 mg/dl Cholesterol/HDL Ratio 2.5 Lipase 106 U/L (73-393) Laboratory results per my review. Medications Administered Medications (Trade) Dose Ordered Sig/Savita Route Start Time Stop Time Status Last Admin Dose Admin Aspirin (Aspirin Chew) 324 mg NOW STAT PO 10/07/17 17:30 10/07/17 17:31 DC 10/07/17 18:16 324 MG Oxycodone HCl (Roxicodone Immediate Rel Tab) 5 mg NOW STAT PO 10/07/17 17:30 10/07/17 17:31 DC 10/07/17 18:17 5 MG Al Hydroxide/Mg Hydroxide (Maalox Susp) 30 ml NOW STAT PO 10/07/17 17:30 10/07/17 17:31 DC 10/07/17 18:16 30 ML Sodium Chloride 1,000 ml @ 50 mls/hr Q20H IV 10/07/17 19:31 11/06/17 19:30 10/07/17 23:30 50 MLS/HR ECG Per My Interpretation Indication: chest pain Rate (beats per minute): 62 Rhythm: normal sinus Findings: no ectopy, other (Inferior and lateral ST abnormality is noted.) Comparison ECG Date: No significant change compared to 10/03/2017 ED Course 1548: The patient was evaluated in room B10. A complete history and physical examination were performed. 1730: Ordered Maalox Susp 30 ml PO Oxycodone HCl 5 mg PO Aspirin 324 mg PO 1735: Upon reevaluation, the patient is content. I discussed results and treatment plan with him. He verbalizes agreement and understanding. I spoke with Dr. Best, [facility]. The patient will be evaluated for further management and care. Medical Decision Prior records/ancillary studies reviewed. Triage Nursing notes reviewed. The patient's history was concerning for chest pain. Differential diagnosis: Etiologies such as cardiac ischemia, aortic dissection, pulmonary embolism, pneumonia, pneumothorax, musculoskeletal, infections, pericarditis, myocarditis , esophageal rupture, gastrointestinal, as well as others were entertained. The patient is a 52-year-old male who presented to the emergency department for an evaluation of chest pain. The patient has been having ongoing chest discomfort radiating to his neck as well as his arm. The patient was seen in our facility recently for similar complaints but decided to leave prior to an evaluation by the hospitalist. I discussed patient's laboratory and radiographic studies with him. I discussed the limitations of the emergency department workup for chest pain with him. Because of his symptoms and his risk factors I discussed his case with the on-call [facility] hospitalist group. They have agreed to evaluate the patient in the emergency department for further management and disposition. Medication Reconcilliation Current Medication List: was personally reviewed by me Blood Pressure Screening Patient's blood pressure: Elevated blood pressure Blood pressure disposition: Elevated BP felt to be situational Consults Time Called: 173 Consulting Physician: Dr. Best, [facility] Returned Call: 173 He will further evaluate the patient Impression Primary Impression: Chest pain Additional Impression: Abnormal electrocardiogram Scribe Attestation The scribe's documentation has been prepared under my direction and personally reviewed by me in its entirety. I confirm that the note above accurately reflects all work, treatment, procedures, and medical decision making performed by me. Departure Information Dispostion Being Evaluated By Hospitalist Referrals No Doctor, Assigned (PCP) Forms Call Back Authorization, HOME CARE DOCUMENTATION FORM, IMPORTANT VISIT INFORMATION Patient Instructions My [facility] Health Problem Qualifiers Primary Impression: Chest pain Chest pain type: unspecified Qualified Codes: R07.9 - Chest pain, unspecified
[2017-10-07 16:02] LABS: BASO % 0.9 %; BASO ABS # 0.09 K/uL (0-0.2); EOS % 2.4 %; EOS ABS # 0.24 K/uL (0-0.5); HEMATOCRIT 38.6 % (42-52); HEMOGLOBIN 13.6 g/dL (14.0-18.0); IG# 0.02 K/uL (0.00-0.02); LYMPH % 30.4 %; MEAN CELL VOLUME 91.3 fL (80-100); MEAN CORPUSCULAR HEMOGLOBIN 32.2 pg (25-34); MEAN CORPUSCULAR HGB CONC 35.2 g/dl (32-36); MEAN PLATELET VOLUME 10.8 fL (7.4-10.4); MONO % 5.5 %; MONO ABS # 0.54 K/uL (0.11-0.59); NEUT % 60.6 %; NEUT ABS # 5.97 K/uL (1.4-6.5); PLATELET COUNT 138 K/uL (130-400); RED CELL DISTRIBUTION WIDTH CV 13.5 % (11.5-14.5); RED CELL DISTRIBUTION WIDTH SD 44.9 fL (36.4-46.3); WHITE BLOOD COUNT 9.86 K/uL (4.8-10.8)
[2017-10-07 16:10] LABS: PTT PATIENT 25.7 SECONDS (21.0-31.0)
[2017-10-07] MEDS ORDERED: VNTHFA/IN INH (16:37)
[2017-10-07 16:47] LABS: ALBUMIN 3.6 gm/dl (3.4-5.0); ALT/SGPT 98 U/L (12-78); AST/SGOT 54 U/L (15-37); BLOOD UREA NITROGEN 9 mg/dl (7-18); CALCIUM 8.8 mg/dl (8.5-10.1); CARBON DIOXIDE 27 mmol/L (21-32); CREATININE 0.85 mg/dl (0.60-1.40); GLUCOSE 95 mg/dl (70-99); LIPASE 106 U/L (73-393); POTASSIUM 3.6 mmol/L (3.5-5.1); SODIUM 141 mmol/L (136-145)
[2017-10-07 16:52] LABS: ALKALINE PHOSPHATASE 85 U/L (45-117); TOTAL PROTEIN 7.6 gm/dl (6.4-8.2)
[2017-10-07] MEDS ORDERED: OXYCODONE HCL IR 5 MG TAB (IMMEDIATE RELEASE) PO STA (17:30)
[2017-10-07] MEDS ORDERED: ASPIRIN 81 MG CHEW PO STA (17:30)
[2017-10-07] MEDS ORDERED: ALUMINUM/MAGNESIUM SUSP 30 ML UDC PO STA (17:30)
[2017-10-07] MEDS ORDERED: SODIUM CHLORIDE 0.9% 1000ML 1,000 ML IV SCH (19:31)
[2017-10-07] MEDS ORDERED: ACETAMINOPHEN 325 MG TAB PO PRN (19:45)
[2017-10-07] MEDS ORDERED: NITROGLYCERIN 0.4 MG SL PER TAB CHARGE SL PRN (19:45)
[2017-10-07] MEDS ORDERED: ONDANSETRON INJ 2 MG/ML 2 ML VIAL IV PRN (19:45)
[2017-10-07] MEDS ORDERED: ALBUTEROL HFA 8 GM INHALER INH PRN (19:45)
[2017-10-07] MEDS ORDERED: ALUMINUM/MAGNESIUM/SIMETH (MAALOX MAX) 30 ML UDC PO PRN (19:45)
[2017-10-07] MEDS ORDERED: MAGNESIUM HYDROXIDE SUSP 30 ML UDC PO PRN (19:45)
[2017-10-07] MEDS ORDERED: KETOROLAC TROMETHAMINE 15 MG/ML VIAL IV. PRN (19:45)
[2017-10-07] MEDS ORDERED: POLYETHYLENE (MIRALAX) 17 GM PACK PO PRN (19:45)
[2017-10-07] MEDS ORDERED: ZOLPIDEM TARTRATE 5 MG TAB PO PRN ×2 (19:45)
[2017-10-07] MEDS ORDERED: KETOROLAC TROMETHAMINE 30 MG/ML VIAL ONE (20:14)
[2017-10-07] MEDS ORDERED: PRLSR20 PO (20:34)
--- NOTE | 2017-10-07 21:13 | History and Physical ---
History & Physical Date & Time of Service: Oct 07, 2017 at 21:08 Chief Complaint: Chest Pain Primary Care Physician: No Doctor, Assigned History of Present Illness Source: patient 52 years old man with history of HCV , COPD , history of drug abuse, cervical spine DJD, elevated liver enzymes and mild thrombocytopenia secondary to hepatitis C, history of pleurisy and hand surgery before presented to the ED with recurrent left-sided chest pain. 2 days ago he was here in the ED with the same complaint said that pain is reproducible, said that previous workup in the past revealed pleurisy although no workup was found in his record. Last stress test was a few years ago that as per patient was negative, no stress test record was found. When he was here 2 days ago he signed AGAINST MEDICAL ADVICE Today he came back with the same left-sided chest pain and said that he will stay for workup Appears to be a typical , pain is reproducible associated with shortness of breath. Denies any other complaint Past Medical/Surgical History Medical Problems: (1) Alcohol abuse Status: Chronic (2) Asthma Status: Chronic (3) Asthma, Unspecified Status: Chronic (4) Drug abuse Status: Chronic (5) Esophageal Reflux Status: Chronic (6) GERD (gastroesophageal reflux disease) Status: Chronic (7) Hepatitis C Status: Chronic (8) Hepatitis C Status: Chronic (9) History of drug abuse Status: Resolved (10) Tobacco abuse Status: Chronic Surgical Problems: (1) H/O hernia repair Status: Chronic Family History Heart disease FATHER, Onset:60 years & older MOTHER, Onset:60 years & older Social History Smoking Status: Current Every Day Smoker Drug Use: none, other Marital Status: Occupational Status: employed Allergies Coded Allergies: Iodine (Verified Allergy, Severe, ANAPHYLAXIS, 10/03/17) Latex (Verified Allergy, Severe, ANAPHYLAXIS, 10/03/17) Penicillins (Verified Allergy, Unknown, RASH, 10/03/17) Codeine (Verified Adverse Reaction, Unknown, nausea, 10/03/17) Home Medications Scheduled Omeprazole (Prilosec), 20 MG PO QAM Scheduled PRN Albuterol Hfa (Ventolin Hfa), 2 PUFFS INH Q6H PRN for SOB/Wheezing Review of Systems Review of system Constitutional: No fever / no chills / no sweats / no weakness / no fatigue Eyes: no blurring of vision / no eye pain / no discharge / no redness ENT: no hearing loss / no epistaxis /no swallowing problems Respiratory: no cough / no wheezing / no SOB / no hemoptysis Cardiovascular: Left-sided chest pain inferior to the neck and the back associated with shortness of breath Abdomen: no pain / no nausea / no vomiting / no constipation Musculoskeletal: no joint pain / no muscle pain / no joint swelling Genitourinary: no dysuria / no incontinence / no urinary retention Neurologic: no focal weakness / no numbness/tingling / no ataxia Psychiatric: no depression symptoms / no anxiety / no insomnia Endocrine: no excessive thirst / no excessive urination Hematologic: no abnormal bleeding / no bruising / no LN swelling Skin: No rash / no pallor Physical Exam Vital Signs Date Time Temp Pulse Resp B/P (MAP) Pulse Ox O2 Delivery O2 Flow Rate FiO2 10/07/17 18:17 64 18 153/94 98 Room Air 10/07/17 17:26 57 10/07/17 17:12 55 18 145/86 97 Room Air 10/07/17 15:53 53 18 166/95 98 Nasal Cannula 2.0 10/07/17 15:43 99 Nasal Cannula 2.0 10/07/17 15:43 96 Room Air 10/07/17 15:43 99 Nasal Cannula 2.0 10/07/17 13:47 36.7 64 16 194/86 100 Room Air Physical examination General patient appears to be comfortable, not in acute distress HEENT: Atraumatic , normocephalic /no jaundice /no pallor /anicteric /no dry mucous membrane /normal external ear inspection Neck: Supple /no swelling /central trach Heart: S1/S2 normal/regular rate and rhythm/no gallop /no rub /no murmur significant tenderness on the left side of the chest, Lungs: Clear to auscultation bilaterally/normal chest with expansion/no rhonchi/ no rales/no wheezing/no use of accessory muscles of respiration Abdomen: Soft/nontender/no guarding/no rebound/no organomegaly/no pulsatile mass Musculoskeletal: No swelling/no edema/no tenderness/normal range of motion Neuro exam: Awake alert oriented 3/cranial nerves II through XII appear to be intact/sensation intact/moves all extremities/no abnormal movements Psychiatric evaluation: No depressed mood/normal affect Skin: No rash on exposed skin area/no erythema Extremity: Normal pulse/no pitting edema/no clubbing or cyanosis Endocrine/lymphatic: No obvious lymphadenopathy /no lymphedema Diagnostics Laboratory Results Results Past 24 Hours Test 10/07/17 15:42 Range/Units White Blood Count 9.86 4.8-10.8 K/uL Red Blood Count 4.23 4.7-6.1 M/uL Hemoglobin 13.6 14.0-18.0 g/dL Hematocrit 38.6 42-52 % Mean Corpuscular Volume 91.3 80-100 fL Mean Corpuscular Hemoglobin 32.2 25-34 pg Mean Corpuscular Hemoglobin Concent 35.2 32-36 g/dl Platelet Count 138 130-400 K/uL Mean Platelet Volume 10.8 7.4-10.4 fL Neutrophils (%) (Auto) 60.6 % Lymphocytes (%) (Auto) 30.4 % Monocytes (%) (Auto) 5.5 % Eosinophils (%) (Auto) 2.4 % Basophils (%) (Auto) 0.9 % Neutrophils # (Auto) 5.97 1.4-6.5 K/uL Lymphocytes # (Auto) 3.00 1.2-3.4 K/uL Monocytes # (Auto) 0.54 0.11-0.59 K/uL Eosinophils # (Auto) 0.24 0-0.5 K/uL Basophils # (Auto) 0.09 0-0.2 K/uL RDW Standard Deviation 44.9 36.4-46.3 fL RDW Coefficient of Variation 13.5 11.5-14.5 % Immature Granulocyte % (Auto) 0.2 % Immature Granulocyte # (Auto) 0.02 0.00-0.02 K/uL Prothrombin Time 10.7 9.0-12.0 SECONDS Prothromb Time International Ratio 1.0 0.9-1.1 Activated Partial Thromboplast Time 25.7 21.0-31.0 SECONDS Partial Thromboplastin Ratio 1.0 Sodium Level 141 136-145 mmol/L Potassium Level 3.6 3.5-5.1 mmol/L Chloride Level 106 98-107 mmol/L Carbon Dioxide Level 27 21-32 mmol/L Anion Gap 8.0 3-11 mmol/L Blood Urea Nitrogen 9 7-18 mg/dl Creatinine 0.85 0.60-1.40 mg/dl Est Creatinine Clear Calc Drug Dose 141.3 ml/min Estimated GFR () 116.1 Estimated GFR (Non- 100.2 BUN/Creatinine Ratio 10.9 10-20 Random Glucose 95 70-99 mg/dl Calcium Level 8.8 8.5-10.1 mg/dl Total Bilirubin 0.4 0.2-1 mg/dl Direct Bilirubin 0.1 0-0.2 mg/dl Aspartate Amino Transf (AST/SGOT) 54 15-37 U/L Alanine Aminotransferase (ALT/SGPT) 98 12-78 U/L Alkaline Phosphatase 85 45-117 U/L Total Creatine Kinase 78 39-308 U/L Creatine Kinase MB 1.0 0.5-3.6 ng/ml Creatine Kinase MB Ratio 1.3 0-3.0 Troponin I < 0.015 0-0.045 ng/ml Total Protein 7.6 6.4-8.2 gm/dl Albumin 3.6 3.4-5.0 gm/dl Lipase 106 73-393 U/L Impression Assessment and Plan 52 years old man with history of HCV , COPD , history of drug abuse, cervical spine DJD, elevated liver enzymes and mild thrombocytopenia secondary to hepatitis C, history of pleurisy and hand surgery before presented to the ED with recurrent left-sided chest pain. Assessment atypical chest pain, reproducible Slightly elevated LFTs/HCV chronic nontreated Cervical spine DJD COPD without exacerbation History of pleurisy in the past History of IV drug abuse plan: Although his pain appears to be atypical, this is his second visit to the ED and 1, giving all his risk factors, will admit the patient under observation for cardiac evaluation, consult business analytics director, recommend stress test despite of the atypical chest pain admit to telemetry obtain serial cardiac enz NTG SL/topical prn CP consult business analytics director pain management Check hemoglobin A1c/lipids to stratify patient risk factors repeat EKG prn chest pain Check sed rate and CRP to rule out pleurisy Patient was instructed to follow-up with GI for treating his hepatitis C virus VTE Prophylaxis VTE Risk Assessment Done? Y/N: Yes Risk Level: Moderate
[2017-10-07] MEDS ORDERED: ENOXAPARIN 40 MG/0.4 ML SYR SC SCH (22:00)
[2017-10-07 22:03] VITALS: BP 155/82; PULSE 55; TEMP 37; O2SAT 94
[2017-10-07 22:11] LABS: CHOLESTEROL 148 mg/dl (0-200); LDL CHOLESTEROL CALCULATED 77 mg/dl
[2017-10-07 22:15] VITALS: BP 155/82; PULSE 55; TEMP 37; O2SAT 94; Ht 195.6 cm; Wt 116.1 kg
[2017-10-07] MEDS ORDERED: NICOTINE 14 MG/24 HR TDSY TD ONE (22:19)
[2017-10-08 00:03] VITALS: BP 162/83; PULSE 56; TEMP 37; O2SAT 92
[2017-10-08] MEDS ORDERED: IV FLUIDS COMPLETED PRN (00:45)
[2017-10-08 04:15] VITALS: BP 148/82; PULSE 54; TEMP 37; O2SAT 94
[2017-10-08 04:29] VITALS: O2SAT 92
--- NOTE | 2017-10-08 06:57 | Progress Note ---
Progress Note Date of Service Oct 08, 2017. Progress Note I was paged at 05:30. Nurse notified me that patient wants to leave. I arrived at the bedside. The patient states "As long as its now my heart, I'm out of here". I stated that this is the second time he has come this week and has left before an adequate assessment could be done. He states "I've been lying here all night, I promised the doc who admitted me that I would still until morning." I encouraged him to at least wait until seen by cardiology and he refuses. I did state the risks of leaving the hospital including, continued/ worsening chest discomfort, inability to obtain possible reason for pain whether cardiac or otherwise, and the possibility of out of the hospital. He acknowledged his understanding and was able to state them back. The patient signed AMA form and was discharged in stable condition.
[2017-10-08] MEDS ORDERED: ASPIRIN 325 MG ECTAB PO SCH (09:00)
[2017-10-08] MEDS ORDERED: NICOTINE 14 MG/24 HR TDSY TD SCH (09:00)
[2017-10-08] MEDS ORDERED: PANTOprazole SOD 40 MG TAB PO SCH (09:00)
== END 2017-10-08 06:21 | disposition left against medical advice (07) ==
LOC: C.EDB 13:40 → C.MED 19:38 → ENRESERV 20:23
PROVIDERS: ADMIT Internal Medicine; ATTEND Internal Medicine
DX: R07.89 Other chest pain (principal); R03.0 Elevated blood-pressure reading, without diagnosis of hypertension; R94.31 Abnormal electrocardiogram [ECG] [EKG]; J44.9 Chronic obstructive pulmonary disease, unspecified; M47.9 Spondylosis, unspecified; D69.6 Thrombocytopenia, unspecified; B19.20 Unspecified viral hepatitis C without hepatic coma; K21.9 Gastro-esophageal reflux disease without esophagitis; F17.200 Nicotine dependence, unspecified, uncomplicated; Z91.040 Latex allergy status; Z88.0 Allergy status to penicillin; Z88.5 Allergy status to narcotic agent; Z91.041 Radiographic dye allergy status; Z82.49 Family history of ischemic heart disease and other diseases of the circulatory system

== ENCOUNTER 2017-11-04 07:51 | Inpatient (IN) | payer SELFPAY ==
[~2017-11-04] VITALS: Ht 195.6 cm; Wt 119.6 kg
[2017-11-04] VITALS (7 sets, daily range): BP systolic 116–171; BP diastolic 78–125; PULSE 55–64; TEMP 36.6–37; O2SAT 95–98; Ht 195.6 cm; Wt 119.6 kg
[2017-11-04] MEDS ORDERED: ASPIRIN 324 MG CHEW PO STA (08:00)
[2017-11-04] MEDS: NITROGLYCERIN 0.4 MG SL PER TAB CHARGE SL PRN ×3 (08:17→08:27)
[2017-11-04 08:21] LABS: HEMATOCRIT 41.4 % (42-52); HEMOGLOBIN 14.6 g/dL (14.0-18.0); MEAN CORPUSCULAR HEMOGLOBIN 32.8 pg (25-34); MEAN CORPUSCULAR HGB CONC 35.3 g/dl (32-36); MEAN PLATELET VOLUME 11.2 fL (7.4-10.4); PLATELET COUNT 149 K/uL (130-400); RED CELL DISTRIBUTION WIDTH CV 12.9 % (11.5-14.5); RED CELL DISTRIBUTION WIDTH SD 44.2 fL (36.4-46.3); WHITE BLOOD COUNT 7.12 K/uL (4.8-10.8)
[2017-11-04 08:30] LABS: PTT PATIENT 26.1 SECONDS (21.0-31.0)
[2017-11-04 08:35] LABS: ALBUMIN 3.6 gm/dl (3.4-5.0); ALT/SGPT 125 U/L (12-78); BLOOD UREA NITROGEN 13 mg/dl (7-18); CALCIUM 8.9 mg/dl (8.5-10.1); CARBON DIOXIDE 29 mmol/L (21-32); CREATININE 0.95 mg/dl (0.60-1.40); GLUCOSE 81 mg/dl (70-99); LIPASE 132 U/L (73-393); POTASSIUM 3.7 mmol/L (3.5-5.1); SODIUM 142 mmol/L (136-145)
[2017-11-04 08:40] LABS: ALKALINE PHOSPHATASE 108 U/L (45-117); AST/SGOT 66 U/L (15-37); TOTAL PROTEIN 7.6 gm/dl (6.4-8.2)
--- NOTE | 2017-11-04 08:42 | DIAGNOSTIC IMAGING REPORT ---
CHEST ONE VIEW PORTABLE CLINICAL HISTORY: 52 years-old Male presenting with CHEST PAIN. TECHNIQUE: Portable upright AP view of the chest was obtained. COMPARISON: 10/07/2017. FINDINGS: Atherosclerosis of the aortic arch. Cardiac silhouette normal in size. Lungs and pleural spaces clear. Osseous structures normal. IMPRESSION: 1. No acute cardiopulmonary disease. Electronically signed by: Abdifatah Roy M.D. 11/04/2017 8:41 AM Dictated Date/Time: 11/04/2017 8:40 AM
[2017-11-04] MEDS ORDERED: IBUPROFEN 200 MG TAB PO STA (08:58)
[2017-11-04] MEDS ORDERED: MoRPHine SULFATE 4 MG/ML 1 ML CARP\\VIAL IV STA (09:08)
--- NOTE | 2017-11-04 09:10 | EMERGENCY ROOM VISIT NOTE ---
History Report prepared by Cheikhiblukas: Clinton Aden Under the Supervision of: Dr. Pardeep Monte M.D. First contact with patient: 07:56 Chief Complaint: CHEST PAIN Stated Complaint: CHEST PAIN History of Present Illness The patient is a 52 year old white male with a past medical history of alcohol abuse, asthma, drug abuse, GERD, pleurisy, and hepatitis C who presents to the ED with a cc of intermittent chest pain beginning a few days ago. Pain radiates up his neck. Describes pain as "burning" and "dull". Positive SOB, and left arm , face and chest numbness. Pain is worsened with deep breathing and exertion. Patient has been seen in the ED twice in the past three weeks for similar symptoms and left AMA both times. 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 Negative leg swelling, cough, fevers, chills. Patient is a smoker. He states that he is six years clean from drugs and alcohol. Source of History: patient Onset: A few days ago Position: chest Quality: burning, dull Timing: intermittent Modifying Factors (Worsening): exertion, breathing (deep) Associated Symptoms: + SOB, + numbness (left arm, chest, face), No fevers, No chills, No cough Note: The patient denies leg swelling. Review of Systems See HPI for pertinent positives and negatives. A total of ten systems were reviewed and were otherwise negative. Past Medical & Surgical Medical Problems: (1) Alcohol abuse (2) Asthma (3) Asthma, Unspecified (4) Drug abuse (5) Elevated CK (6) Esophageal Reflux (7) GERD (gastroesophageal reflux disease) (8) Hepatitis C (9) Hepatitis C (10) History of drug abuse (11) Intractable abdominal pain (12) Tobacco abuse Surgical Problems: (1) H/O hernia repair Family History Heart disease FATHER, Onset:60 years & older MOTHER, Onset:60 years & older Social History Smoking Status: Current Every Day Smoker Alcohol Use: none Drug Use: none, other Marital Status: Housing Status: lives with family Occupation Status: employed Current/Historical Medications Scheduled Omeprazole (Prilosec), 20 MG PO QAM Scheduled PRN Albuterol Hfa (Ventolin Hfa), 2 PUFFS INH Q6H PRN for SOB/Wheezing Allergies Coded Allergies: Iodine (Verified Allergy, Severe, ANAPHYLAXIS, 11/04/17) Latex (Verified Allergy, Severe, ANAPHYLAXIS, 11/04/17) Penicillins (Verified Allergy, Unknown, RASH, 11/04/17) Codeine (Verified Adverse Reaction, Unknown, nausea, 11/04/17) Physical Exam Vital Signs Date Time Temp Pulse Resp B/P (MAP) Pulse Ox O2 Delivery O2 Flow Rate FiO2 11/04/17 08:32 75 21 141/102 93 Room Air 11/04/17 08:27 77 19 146/96 95 Room Air 11/04/17 08:22 73 20 140/101 95 Room Air 11/04/17 08:17 69 18 156/116 97 Room Air 11/04/17 08:10 98 Room Air 11/04/17 08:09 73 11/04/17 08:07 98 Room Air 11/04/17 07:52 36.6 69 18 177/106 97 Room Air Physical Exam GENERAL: Awake, alert, well-appearing, NAD. Wearing bandana. HENT: Normocephalic, atraumatic. EYES: Normal conjunctiva. Sclera non-icteric. NECK: Supple. No nuchal rigidity. FROM. RESPIRATORY: CTAB, no rhonchi, wheezing, crackles CARDIAC: RRR, no MRG ABDOMEN: Soft, NTND, BS+ MSK: No chest wall TTP, no LE edema NEURO: GCS 15, CN 2-12 intact, moves all 4s on command SKIN: No rash or jaundice noted. Multiple tattoos. Medical Decision & Procedures ER Provider Diagnostic Interpretation: Radiology results as stated below per my review and radiologist interpretation: CHEST ONE VIEW PORTABLE FINDINGS: Atherosclerosis of the aortic arch. Cardiac silhouette normal in size. Lungs and pleural spaces clear. Osseous structures normal. IMPRESSION: 1. No acute cardiopulmonary disease. Electronically signed by: Abdifatah Roy M.D. 11/04/2017 8:41 AM Laboratory Results 11/04/17 08:10 Red Blood Count 4.45, Mean Corpuscular Volume 93.0, Mean Corpuscular Hemoglobin 32.8, Mean Corpuscular Hemoglobin Concent 35.3, Mean Platelet Volume 11.2, Neutrophils (%) (Auto) 31.2, Lymphocytes (%) (Auto) 50.7, Monocytes (%) (Auto) 7.6, Eosinophils (%) (Auto) 8.4, Basophils (%) (Auto) 2.0, Neutrophils # (Auto) 2.22, Lymphocytes # (Auto) 3.61, Monocytes # (Auto) 0.54, Eosinophils # (Auto) 0.60, Basophils # (Auto) 0.14 11/04/17 08:10 Test 11/04/17 08:10 White Blood Count 7.12 K/uL (4.8-10.8) Red Blood Count 4.45 M/uL (4.7-6.1) Hemoglobin 14.6 g/dL (14.0-18.0) Hematocrit 41.4 % (42-52) Mean Corpuscular Volume 93.0 fL (80-100) Mean Corpuscular Hemoglobin 32.8 pg (25-34) Mean Corpuscular Hemoglobin Concent 35.3 g/dl (32-36) Platelet Count 149 K/uL (130-400) Mean Platelet Volume 11.2 fL (7.4-10.4) Neutrophils (%) (Auto) 31.2 % Lymphocytes (%) (Auto) 50.7 % Monocytes (%) (Auto) 7.6 % Eosinophils (%) (Auto) 8.4 % Basophils (%) (Auto) 2.0 % Neutrophils # (Auto) 2.22 K/uL (1.4-6.5) Lymphocytes # (Auto) 3.61 K/uL (1.2-3.4) Monocytes # (Auto) 0.54 K/uL (0.11-0.59) Eosinophils # (Auto) 0.60 K/uL (0-0.5) Basophils # (Auto) 0.14 K/uL (0-0.2) RDW Standard Deviation 44.2 fL (36.4-46.3) RDW Coefficient of Variation 12.9 % (11.5-14.5) Immature Granulocyte % (Auto) 0.1 % Immature Granulocyte # (Auto) 0.01 K/uL (0.00-0.02) Prothrombin Time 10.4 SECONDS (9.0-12.0) Prothromb Time International Ratio 1.0 (0.9-1.1) Activated Partial Thromboplast Time 26.1 SECONDS (21.0-31.0) Partial Thromboplastin Ratio 1.0 Anion Gap 5.0 mmol/L (3-11) Est Creatinine Clear Calc Drug Dose 132.6 ml/min Estimated GFR () 106.2 Estimated GFR (Non- 91.7 BUN/Creatinine Ratio 13.1 (10-20) Calcium Level 8.9 mg/dl (8.5-10.1) Magnesium Level 1.9 mg/dl (1.8-2.4) Total Bilirubin 0.3 mg/dl (0.2-1) Direct Bilirubin < 0.1 mg/dl (0-0.2) Aspartate Amino Transf (AST/SGOT) 66 U/L (15-37) Alanine Aminotransferase (ALT/SGPT) 125 U/L (12-78) Alkaline Phosphatase 108 U/L (45-117) Troponin I < 0.015 ng/ml (0-0.045) Pro-B-Type Natriuretic Peptide 87 pg/ml (0-900) Total Protein 7.6 gm/dl (6.4-8.2) Albumin 3.6 gm/dl (3.4-5.0) Lipase 132 U/L (73-393) Laboratory results reviewed by me Medications Administered Medications (Trade) Dose Ordered Sig/Savita Route Start Time Stop Time Status Last Admin Dose Admin Aspirin (Aspirin Chew) 324 mg NOW STAT PO 11/04/17 08:00 11/04/17 08:09 DC 11/04/17 08:15 324 MG Nitroglycerin (Nitrostat Tab) 0.4 mg PRN PRN SL 11/04/17 08:00 12/04/17 07:59 11/04/17 08:17 0.4 MG ECG Per My Interpretation Indication: chest pain Rate (beats per minute): 65 Rhythm: normal sinus Findings: other (Normal intervals. Normal axis. No STS change or TWI. ) ED Course 0801: The patient was evaluated in room B10. A complete history and physical exam was performed. 0900: I checked in on the patient. He has seen very minimal pain relief with nitroglycerin. 0915: Upon reexamination, the patient was resting comfortably. I discussed the test results and treatment plan with him. The patient will be evaluated for further management. Medical Decision The patient is a 52 year old white male with a past medical history of alcohol abuse, asthma, drug abuse, GERD, pleurisy, and hepatitis C who presents to the ED with a cc of intermittent chest pain beginning a few days ago. Differential diagnosis: Etiologies such as cardiac ischemia, aortic dissection, pulmonary embolism, pneumonia, pneumothorax, musculoskeletal, infections, pericarditis, myocarditis , esophageal rupture, gastrointestinal, as well as others were entertained. Prior records were reviewed. Of note the patient has been admitted for chest pain but his left AMA 2. Patient was seen and evaluated at the bedside. Patient did complain of chest pain that was exertional while shoveling snow this morning. Patient states it is left-sided does feel like a pressure versus burning. He still has pain. Patient does complain of some mild shortness of breath. Denies any infectious symptoms or cough. Patient does have a prior history of hep C as well as IV drug abuse and hypertension. Patient states that he does have family members that he believed had heart attacks in their 60s. Given that the patient has had exertional symptoms as well as risk factors in addition to family history patient would likely benefit from further workup and rule out. I did discuss the patient needs to buy and potentially staying and not leaving AMA. The patient states he is amenable to staying at this time until his workup is complete. After being given aspirin nitro the patient's pain on mildly improved. Patient was given additional pain medication. I did discuss case with the hospitalist. Medication Reconcilliation Current Medication List: was personally reviewed by me Blood Pressure Screening Patient's blood pressure: Elevated blood pressure Blood pressure disposition: Referred to PCP Consults Time Called: 914 Consulting Physician: Dr. Karlene SAMAYOA Hospitalist Returned Call: 09 Discussed the patient's case. The patient will be evaluated for further treatment and disposition. Impression Primary Impression: Left sided chest pain Scribe Attestation The scribe's documentation has been prepared under my direction and personally reviewed by me in its entirety. I confirm that the note above accurately reflects all work, treatment, procedures, and medical decision making performed by me. Departure Information Dispostion Being Evaluated By Hospitalist Referrals No Doctor, Assigned (PCP) Patient Instructions My [facility]
[2017-11-04 09:16] LABS: BASO ABS # 0.14 K/uL (0-0.2); EOS % 8.4 %; IG# 0.01 K/uL (0.00-0.02); LYMPH % 50.7 %; LYMPH ABS # 3.61 K/uL (1.2-3.4); MONO % 7.6 %; MONO ABS # 0.54 K/uL (0.11-0.59); NEUT % 31.2 %; NEUT ABS # 2.22 K/uL (1.4-6.5)
[2017-11-04] MEDS ORDERED: ONDANSETRON INJ 2 MG/ML 2 ML VIAL IV PRN (10:15)
[2017-11-04] MEDS ORDERED: ACETAMINOPHEN 325 MG TAB PO PRN (10:15)
[2017-11-04] MEDS ORDERED: POLYETHYLENE (MIRALAX) 17 GM PACK PO PRN (10:15)
[2017-11-04] MEDS ORDERED: ALBUTEROL HFA 8 GM INHALER INH PRN (10:15)
[2017-11-04] MEDS ORDERED: MAGNESIUM HYDROXIDE SUSP 30 ML UDC PO PRN (10:15)
[2017-11-04] MEDS ORDERED: NITROGLYCERIN 0.4 MG SL PER TAB CHARGE SL PRN (10:15)
--- NOTE | 2017-11-04 10:35 | History and Physical ---
History & Physical Date & Time of Service: Nov 04, 2017 at 10:20 Chief Complaint: Chest Pain Primary Care Physician: No Doctor, Assigned History of Present Illness Source: patient, hospital records This is a 52 y/o male with a history of IV drug use, ETOH abuse, asthma, GERD, pleurisy and hepatitis C who presented to the ED on 11/04 with chest pain. The patient states he started developing intermittent chest pain a few days ago that has been getting progressively worse and more constant. Yesterday he was shoveling snow and developed 10/10 sharp chest pain accompanied by shortness of breath, dizziness, nausea and left arm tingling. He states the pain at that time was radiating up to his neck and he was nearly syncopal. He also notes that he vomited later that night. Currently he complains of 5/10 central chest pressure. His SOB and left arm numbness is improved and he currently denies nausea/vomiting. He states the pain is worse with deep breaths and exertion. This is the third time in 4 week that he was presented with similar symptoms, but he has been leaving AMA before a full cardiac work up could be completed. The patient states he is willing to stay overnight for further work up and that he had been leaving [place] due to feels of claustrophobia in his room due to his history of senior living time. The patient denies fevers, chills, sweats, palpitations , claudication, cough, wheezing, abdominal pain, dysuria, hematuria, urinary retention, paralysis, weakness. Past Medical/Surgical History Medical Problems: (1) Abnormal electrocardiogram (2) Alcohol abuse (3) Asthma (4) Asthma, Unspecified (5) Chest pain (6) Drug abuse (7) Elevated CK (8) Esophageal Reflux (9) GERD (gastroesophageal reflux disease) (10) Headache (11) Headache (12) Hepatitis C (13) Hepatitis C (14) History of drug abuse (15) Hypertension (16) Hypertension (17) Intractable abdominal pain (18) Musculoskeletal chest pain (19) Precordial chest pain (20) Rhabdomyolysis (21) Right upper quadrant abdominal pain (22) Tobacco abuse (23) Vomiting (24) Weakness of extremity Surgical Problems: (1) H/O hernia repair Family History Chronic obstructive pulmonary disease FATHER Diabetes mellitus FATHER, Onset:60 years & older Heart disease FATHER, Onset:60 years & older MOTHER, Onset:50's - 60 Myocardial infarction FATHER MOTHER, Onset:50's - 60 Social History Smoking Status: Current Every Day Smoker (1.5 ppd x 40 years) Smokeless Tobacco Use: No Alcohol Use: none (former heavy use, none in 11 years) Drug Use: none (former IV drug use, none for 6 years), other Housing status: lives with family (daughter and son in law) Occupational Status: employed Allergies Coded Allergies: Iodine (Verified Allergy, Severe, ANAPHYLAXIS, 11/04/17) Latex (Verified Allergy, Severe, ANAPHYLAXIS, 11/04/17) Penicillins (Verified Allergy, Unknown, RASH, 11/04/17) Codeine (Verified Adverse Reaction, Unknown, nausea, 11/04/17) Home Medications Scheduled Omeprazole (Prilosec), 20 MG PO QAM Scheduled PRN Albuterol Hfa (Ventolin Hfa), 2 PUFFS INH Q6H PRN for SOB/Wheezing Review of Systems Constitutional: No fever, No chills, No sweats Eyes: No worsening of vision, No eye pain, No diplopia ENT: No hearing loss, No nasal symptoms, No trouble swallowing Respiratory: +SOB/GUTIERREZ. No cough, No wheezing Cardiovascular: +Chest pain. No claudication, No palpitations Abdomen: +Nausea/vomiting last night. No pain Musculoskeletal: No joint pain, No muscle pain, No swelling Genitourinary - Male: No dysuria, No urinary retention, No hematuria Neurologic: +Left arm numbness/tingling. No paralysis, No weakness Integumentary: No rash, No itch, No color change Physical Exam Vital Signs Date Time Temp Pulse Resp B/P (MAP) Pulse Ox O2 Delivery O2 Flow Rate FiO2 11/04/17 09:35 96 Room Air 11/04/17 09:00 66 18 109/61 96 Room Air 11/04/17 08:32 75 21 141/102 93 Room Air 11/04/17 08:27 77 19 146/96 95 Room Air 11/04/17 08:22 73 20 140/101 95 Room Air 11/04/17 08:17 69 18 156/116 97 Room Air 11/04/17 08:10 98 Room Air 11/04/17 08:09 73 11/04/17 08:07 98 Room Air 11/04/17 07:52 36.6 69 18 177/106 97 Room Air General appearance: +Obese. Well-developed, well-nourished, no apparent distress Head: Normocephalic, atraumatic Eyes: Normal inspection, PERRL, EOMI ENT: Normal ENT inspection, hearing grossly normal, pharynx normal Neck: Supple, no JVD, trachea midline Respiratory/Chest: +Chest TTP. Lungs clear to auscultation, normal breath sounds, no respiratory distress Cardiovascular: Regular rate & rhythm, no gallop, no murmur Abdomen/GI: +RUQ and epigastrium TTP. Normal bowel sounds, soft Extremities/Musculoskeletal: Normal inspection, no calf tenderness, no pedal edema Neurological/Psych: Alert, normal mood/affect, oriented x 3 Skin: Normal color, warm/dry, no rash Diagnostics Laboratory Results Results Past 24 Hours Test 11/04/17 08:10 Range/Units White Blood Count 7.12 4.8-10.8 K/uL Red Blood Count 4.45 4.7-6.1 M/uL Hemoglobin 14.6 14.0-18.0 g/dL Hematocrit 41.4 42-52 % Mean Corpuscular Volume 93.0 80-100 fL Mean Corpuscular Hemoglobin 32.8 25-34 pg Mean Corpuscular Hemoglobin Concent 35.3 32-36 g/dl Platelet Count 149 130-400 K/uL Mean Platelet Volume 11.2 7.4-10.4 fL Neutrophils (%) (Auto) 31.2 % Lymphocytes (%) (Auto) 50.7 % Monocytes (%) (Auto) 7.6 % Eosinophils (%) (Auto) 8.4 % Basophils (%) (Auto) 2.0 % Neutrophils # (Auto) 2.22 1.4-6.5 K/uL Lymphocytes # (Auto) 3.61 1.2-3.4 K/uL Monocytes # (Auto) 0.54 0.11-0.59 K/uL Eosinophils # (Auto) 0.60 0-0.5 K/uL Basophils # (Auto) 0.14 0-0.2 K/uL RDW Standard Deviation 44.2 36.4-46.3 fL RDW Coefficient of Variation 12.9 11.5-14.5 % Immature Granulocyte % (Auto) 0.1 % Immature Granulocyte # (Auto) 0.01 0.00-0.02 K/uL Prothrombin Time 10.4 9.0-12.0 SECONDS Prothromb Time International Ratio 1.0 0.9-1.1 Activated Partial Thromboplast Time 26.1 21.0-31.0 SECONDS Partial Thromboplastin Ratio 1.0 Sodium Level 142 136-145 mmol/L Potassium Level 3.7 3.5-5.1 mmol/L Chloride Level 107 98-107 mmol/L Carbon Dioxide Level 29 21-32 mmol/L Anion Gap 5.0 3-11 mmol/L Blood Urea Nitrogen 13 7-18 mg/dl Creatinine 0.95 0.60-1.40 mg/dl Est Creatinine Clear Calc Drug Dose 132.6 ml/min Estimated GFR () 106.2 Estimated GFR (Non- 91.7 BUN/Creatinine Ratio 13.1 10-20 Random Glucose 81 70-99 mg/dl Calcium Level 8.9 8.5-10.1 mg/dl Magnesium Level 1.9 1.8-2.4 mg/dl Total Bilirubin 0.3 0.2-1 mg/dl Direct Bilirubin < 0.1 0-0.2 mg/dl Aspartate Amino Transf (AST/SGOT) 66 15-37 U/L Alanine Aminotransferase (ALT/SGPT) 125 12-78 U/L Alkaline Phosphatase 108 45-117 U/L Troponin I < 0.015 0-0.045 ng/ml Pro-B-Type Natriuretic Peptide 87 0-900 pg/ml Total Protein 7.6 6.4-8.2 gm/dl Albumin 3.6 3.4-5.0 gm/dl Lipase 132 73-393 U/L Diagnostic Radiology Reviewed the following studies and agree with interpretation as follows: CHEST ONE VIEW PORTABLE CLINICAL HISTORY: 52 years-old Male presenting with CHEST PAIN. TECHNIQUE: Portable upright AP view of the chest was obtained. COMPARISON: 10/07/2017. FINDINGS: Atherosclerosis of the aortic arch. Cardiac silhouette normal in size. Lungs and pleural spaces clear. Osseous structures normal. IMPRESSION: 1. No acute cardiopulmonary disease. EKG Reviewed EKG and agree with interpretation as follows: 65 bpm, NSR Impression Assessment and Plan 52 y/o male with a history of IV drug use, ETOH abuse, asthma, GERD, pleurisy and hepatitis C who presented to the ED on 11/04 with chest pain. Pt afebrile on arrival, HR stable and non-hypoxic. BP elevated on arrival but now WNL. Pt received ASA, nitro tab and morphine in ED and pain is somewhat alleviated. Labs stable, troponin negative. CXR no acute disease. EKG no ischemic changes. Chest pain, ACS r/o--history of similar symptoms for last month, much worse last night. Has left AMA in the past before cardiac work up could be completed -Admit to telemetry for observation -Trend cardiac enzymes q8h x 3. First troponin negative -Stress echo in am if negative -Check fasting lipid panel in am -BSG WNL, no h/o DM -Start ASA 81 mg PO qd empirically -Nitro, morphine prn chest pain -EKG q am and prn chest pain H/o IVDU, ETOH abuse, hepatitis C--noted -AST/ALT chronically elevated, stable Tobacco use -Nicotine patch, chromosomal disorders counselor on cessation Mild intermittent asthma -Continue albuterol inhaler prn GERD -Continue PPI DVT prophylaxis -Enoxaparin 40 mg SC q24h -NABIL [place] Code Status -Level I, FULL RESUSCITATION STATUS Advanced Directives Existing Living Will: No Existing Power of [facility] Worker: No Resuscitation Status VTE Prophylaxis Will order VTE Prophylaxis: Yes
[2017-11-04] MEDS ORDERED: IV FLUIDS COMPLETED PRN (11:00)
[2017-11-04] MEDS: ALUMINUM/MAGNESIUM/SIMETH (MAALOX MAX) 30 ML UDC PO PRN ×2 (11:27→20:02)
[2017-11-04] MEDS: MoRPHine SULFATE 2 MG/ML CARP IV PRN ×3 (11:28→20:03)
[2017-11-04] MEDS ORDERED: ENOXAPARIN 40 MG/0.4 ML SYR SC SCH (12:00)
[2017-11-04] MEDS: NICOTINE 21 MG/24 HR TDSY TD SCH (13:48)
[2017-11-04 16:37] LABS: CKMB 2.1 ng/ml (0.5-3.6)
[2017-11-04] MEDS ORDERED: VNTHFA/IN INH (16:37)
[2017-11-04] MEDS ORDERED: PRLSR20 PO (20:34)
[2017-11-05] MEDS: MoRPHine SULFATE 2 MG/ML CARP IV PRN ×2 (00:16→04:34)
[2017-11-05 00:39] LABS: CKMB 1.9 ng/ml (0.5-3.6)
[2017-11-05 05:05] VITALS: BP 153/99; PULSE 47; TEMP 36.4; O2SAT 94
[2017-11-05 07:30] VITALS: BP 101/68; PULSE 78; TEMP 36.5; O2SAT 99
[2017-11-05 07:45] VITALS: BP 137/76; PULSE 47; TEMP 37; O2SAT 96
[2017-11-05] MEDS ORDERED: MoRPHine SULFATE 2 MG/ML CARP IV PRN (07:45)
[2017-11-05] MEDS ORDERED: LISINOPRIL 5 MG TAB PO ONE (07:45)
[2017-11-05 08:00] VITALS: O2SAT 96
[2017-11-05] MEDS: NICOTINE 21 MG/24 HR TDSY TD SCH (09:00)
[2017-11-05] MEDS ORDERED: PANTOprazole SOD 40 MG TAB PO SCH (09:00)
[2017-11-05] MEDS ORDERED: ASPIRIN 81 MG ECTAB PO SCH (09:00)
[2017-11-05 12:07] VITALS: BP 132/82; PULSE 69; TEMP 36.5; O2SAT 96
--- NOTE | 2017-11-05 15:04 | Discharge Summary ---
Discharge Summary Date of Service Nov 05, 2017. Discharge Summary Admission Date: Nov 04, 2017 at 10:20 Discharge Date: Nov 05, 2017 Discharge Disposition: Home (Walking out without finishing up evaluation and discharge plan) Principal Diagnosis: Chest pain rule out Problems/Secondary Diagnoses: (1) Asthma, Unspecified Status: Chronic (2) Esophageal Reflux Status: Chronic (3) Hepatitis C Status: Chronic Procedures: Stress echo Consultations: No Discharge Exam Report epigastric pain reproducible, 6-7 out of 10, has been several months, Review of Systems: Constitutional: No fever, No chills, No sweats, No weight loss, No weakness , No fatigue, No problem reported Eyes: No worsening of vision, No eye pain, No redness, No discharge, No diplopia, No problem reported ENT: No hearing loss, No unusual epistaxis, No nasal symptoms, No sore throat, No tinnitus, No dental problems, No trouble swallowing, No problem reported Respiratory: No cough, No sputum, No wheezing, No shortness of breath, No dyspnea on exertion, No dyspnea at rest, No hemoptysis, No problem reported Cardiovascular: No chest pain, No orthopnea, No PND, No edema, No claudication, No palpitations, No problem reported Abdomen: + pain, No nausea, No vomiting, No diarrhea, No constipation, No GI bleeding, No problem reported Musculoskeletal: No joint pain, No muscle pain, No swelling, No calf pain, No problem reported Genitourinary - Male: No hematuria, No dysuria, No urinary frequency, No urinary urgency, No urinary hesitancy, No urinary retention, No urinary incontinence, No penile discharge, No lesions, No impotence, No problem reported Neurologic: No memory loss, No paralysis, No weakness, No numbness/tingling , No vertigo, No balance problems, No problem reported Psychiatric: No depression symptoms, No anhedonism, No anxiety, No insomnia , No substance abuse, No problem reported Endocrine: No fatigue, No excessive thirst, No excessive urination, No problem reported Hematologic / Lymphatic: No abnormal bleeding/bruising, No clotting problems , No swollen lymph nodes, No night sweats, No problem reported Integumentary: No rash, No itch, No new/changing skin lesions, No color change, No bleeding, No problem reported Physical Exam: General Appearance: WD/WN, no apparent distress Eyes: normal inspection, PERRL ENT: normal ENT inspection, hearing grossly normal, TMs normal, pharynx normal Neck: supple, no adenopathy, thyroid normal Respiratory/Chest: chest non-tender, normal breath sounds, no respiratory distress, + decreased breath sounds Cardiovascular: regular rate, rhythm, no edema, no gallop Abdomen / GI: normal bowel sounds, + tenderness (Reproducible epigastric pain) Extremities: normal inspection, no calf tenderness, normal capillary refill , no pedal edema Neurologic/Psychiatric: moving picture operator II-XII nml as tested, no motor/sensory deficits , alert, normal mood/affect, normal reflexes Skin: normal color, warm/dry Hospital Course 52 y/o male in observation on 11/04 with chest pain. Per ED note, pt afebrile on arrival, HR stable and non-hypoxic. BP elevated on arrival but now WNL. Pt received ASA, nitro tab and morphine in ED and pain is somewhat alleviated. Labs stable, troponin negative. CXR no acute disease. EKG no ischemic changes. Chest pain, need to rule out ACS history of similar symptoms for last month, much worse last night. Has left AMA in the past before cardiac work up could be completed Patient has no PCP, multiple time AMA, he is in high risk of ACS and high risk of drop off follow-up Patient has been kept telemetry for observation, telemetry was noted Negative cardiac enzymes q8h x 3. Stress echo in am, stomach, cardiology give me verbal report, pending formal report Checked fasting lipid panel, it was unremarkable H/o IVDU, ETOH abuse, hepatitis C--noted Tobacco use, give nicotine patch, recreation counselor on cessation Patient has chest pain, stress test was done, no formal report yet, finger lift operator report the echo in the root of aortic not able to be observed well , possible need to follow-up with MD However patient has no PCP, no insurance, I did requested social work administrator continue to talk to the patient, make complete application of MA51, advised patient to wait for me for the formal stress test results and may need to follow-up with PCP or cardiology for their heart conditions, I also offered possible Voltaren cream topical use for the epigastric pain which could be muscle pain , however patient did not want to wait, he refused to sign AMA which was offered to him by nursing staff, per Rn, and progress note patient just walked out. Code Status -Level I, FULL RESUSCITATION STATUS Total Time Spent: Greater than 30 minutes This includes examination of the patient, discharge planning, medication reconciliation, and communication with other providers. Discharge Instructions Please refer to the electronic Patient Visit Report (Discharge Instructions) for additional information.
--- NOTE | 2017-11-05 15:06 | EXERCISE STRESS ECHO ---
*NOTICE TO RECEIVING LIBERTARIAN AGENCY This information is strictly Confidential and protected under [place] law. [place] law prohibits you from making any further disclosure of this information unless further disclosure is expressly permitted by the written consent of the person to whom it pertains or is authorized by law. A general authorization for the release of medical or other information is not sufficient for this purpose. Hospital accepts no responsibility if the information is made available to any other person, INCLUDING THE PATIENT. Interpretation Summary * Name: VANESSA AMBROSIO Study Date: 11/05/2017 09:32 AM BP: 153/91 mmHg * Patient Location: [facility]\S\[id number]\S\1 HR: 78 * : 1965 (M/d/yyyy) Gender: Male Height: 77 in * Age: 52 yrs Ethnicity: CA Weight: 273 lb * Ordering Physician: Claritza Hood * Referring Physician: Self, Referred * Performed By: Melissa Valera RDCS * * Reason For Study: Chest pain * BSA: 2.6 m2 * -- Conclusions -- * Stress Echo: * 1. Nondiagnostic exercise stress echocardiogram for ischemia as target heart rate was not attained. There were no ischemic changes noted at 64% MPHR. * 2. Nondiagnostic exercise ECG as target heart rate was not attained. * 3. No arrhythmia. * 4. Appropriate blood pressure response to exercise. * 5. Patient complained of epigastric pain that was constant for days prior to the start of the procedure which persisted throughout. * 6. Fair exercise tolerance. 8.5 METS. * 7. Technically difficult study, enhanced with IV Definity. * Echo: * 1. Mildly dilated left ventricle with normal systolic function. EF 55-60%. No regional wall motion abnormalities. No left ventricular hypertrophy. Type 1 diastolic dysfunction. * 2. No significant valvular abnormalities visualized. * 3. Mildly dilated ascending aorta; 4.5 cm. * 4. Normal estimated right ventricular systolic pressure. Procedure Details * ECHOEX, CPT #[id number] * ECHO DOPPLER, CPT #[id number] * ECHO COLOR FLOW, CPT #[id number] * A contrast injection of Definity was performed to improve assessment of LV function. * Contrast was injected into an intravenous site in the left arm. * One vial of Definity ultrasound contrast was diluted in normal saline to a total volume of 10 ml. A total of '4' ml of solution was administered during imaging. * Lot # [id number] of Definity utilized for procedure. * Expiration date OCT 10. * The attending nurse who injected the contrast agent was Dr. Zoltan Carcamo MD, RN. Left Ventricle * The left ventricle is mildly dilated. * There is normal left ventricular wall thickness. * Left ventricular systolic function is normal. * The left ventricular ejection fraction increases normally with stress. The left ventricular end-systolic cavity size reduces post-stress (normal response). The left ventricular wall motion with stress is normal. * Resting wall motion: Normal. Stress wall motion: Appropriate increase in Left ventricular systolic function and decrease in cavity size. No stress induced segmental wall motion abnormalities. Right Ventricle * Borderline right ventricular enlargement. * The right ventricular systolic function is normal as assessed by tricuspid annular plane systolic excursion (TAPSE) (normal >1.5 cm). Atria * The left atrial size is normal. * Right atrial size is normal. * There is no evidence of atrial septal defect, but resolution does not allow assessment for a patent foramen ovale. Mitral Valve * The mitral valve is grossly normal. * There is no mitral valve stenosis. * There is trace mitral regurgitation. Tricuspid Valve * The tricuspid valve is not well visualized, but is grossly normal. * There is no tricuspid stenosis. * There is trace tricuspid regurgitation. Aortic Valve * The aortic valve is not well visualized. * No hemodynamically significant valvular aortic stenosis. * There is no significant aortic regurgitation. Pulmonic Valve * The pulmonary valve is inadequately visualized, but the Doppler data is adequate for interpretation. * Mild pulmonic valvular regurgitation. Great Vessels * The aortic root is normal size. * Mildly dilated ascending aorta; 4.5 cm. Pericardium * There is no pericardial effusion. Stress Parameters * Sinus bradycardia at 57 bpm. Incomplete right bundle-branch block. * No significant ST changes. No arrhythmia. * The stress portion of this study was personally supervised by the undersigned interpreting physician. * Rest heart rate was '78' BPM. * Rest blood pressure was '153/91' * Maximum heart rate achieved was 108 bpm. * Maximum heart rate was 64 % of maximum age-predicted heart rate. * Maximum blood pressure was '197/96' * Total exercise time was '7:00' * Maximum exercise MET level achieved was '8.50' METS * Maximum treadmill speed was '3.40' miles per hour. * Maximum treadmill elevation was '14.00'% grade. * Exercise was terminated due to 'fatigue' * Normal blood pressure response to exercise. MMode 2D Measurements and Calculations IVSd 0.90 cm LVIDd 5.5 cm LVIDs 3.9 cm LVPWd 0.93 cm IVS/LVPW 0.96 FS 29.4 % EDV(Teich) 145.4 ml ESV(Teich) 64.3 ml EF(Teich) 55.7 % EDV(cubed) 163.4 ml ESV(cubed) 57.5 ml EF(cubed) 64.8 % LV mass(C)d 187.4 grams LV mass(C)dI 73.4 grams/m\S\2 SV(Teich) 81.0 ml SI(Teich) 31.7 ml/m\S\2 SV(cubed) 105.8 ml SI(cubed) 41.5 ml/m\S\2 Ao root diam 4.1 cm Ao root area 13.0 cm\S\2 ACS 2.9 cm LA dimension 3.8 cm asc Aorta Diam 4.5 cm LA/Ao 0.94 LVOT diam 2.1 cm LVOT area 3.5 cm\S\2 LVAd ap4 37.1 cm\S\2 LVLd ap4 9.1 cm EDV(MOD-sp4) 122.4 ml EDV(sp4-el) 127.8 ml LVAs ap4 21.4 cm\S\2 LVLs ap4 7.8 cm ESV(MOD-sp4) 49.0 ml ESV(sp4-el) 49.7 ml EF(MOD-sp4) 60.0 % EF(sp4-el) 61.1 % LVAd ap2 44.4 cm\S\2 LVLd ap2 9.5 cm EDV(MOD-sp2) 166.5 ml EDV(sp2-el) 176.5 ml LVAs ap2 25.1 cm\S\2 LVLs ap2 7.6 cm ESV(MOD-sp2) 70.3 ml ESV(sp2-el) 70.3 ml EF(MOD-sp2) 57.8 % EF(sp2-el) 60.2 % LVLd %diff 3.9 % EDV(MOD-bp) 147.3 ml LVLs %diff -2.93 % ESV(MOD-bp) 58.5 ml EF(MOD-bp) 60.3 % SV(MOD-sp4) 73.4 ml SI(MOD-sp4) 28.8 ml/m\S\2 SV(MOD-sp2) 96.1 ml SI(MOD-sp2) 37.7 ml/m\S\2 SV(MOD-bp) 88.8 ml SI(MOD-bp) 34.8 ml/m\S\2 SV(sp4-el) 78.1 ml SI(sp4-el) 30.6 ml/m\S\2 SV(sp2-el) 106.2 ml SI(sp2-el) 41.6 ml/m\S\2 Doppler Measurements and Calculations MV E max linda 71.8 cm/sec MV A max linda 75.7 cm/sec MV E/A 0.95 MV dec time 0.33 sec Ao V2 max 145.2 cm/sec Ao max PG 8.4 mmHg Ao max PG (full) 3.1 mmHg JANAY(V,A) 2.8 cm\S\2 JANAY(V,D) 2.8 cm\S\2 LV V1 max PG 5.4 mmHg LV V1 max 115.9 cm/sec PA V2 max 97.7 cm/sec PA max PG 3.8 mmHg PA acc slope 320.4 cm/sec\S\2 PA acc time 0.16 sec TR max linda 255.2 cm/sec RVSP(TR) 29.1 mmHg RAP systole 3.0 mmHg PA pr(Accel) 6.1 mmHg
[2017-11-06] MEDS ORDERED: LISINOPRIL 5 MG TAB PO SCH (09:00)
== END 2017-11-05 11:55 | disposition left against medical advice (07) | DRG 313 ==
LOC: C.EDB 07:52 → C.EDINP 10:20 → ENRESERV 11:26 → C.MED 14:41
PROVIDERS: ADMIT Hospitalist; ATTEND Hospitalist
DX: R07.9 Chest pain, unspecified (principal); Z53.21 Procedure and treatment not carried out due to patient leaving prior to being seen by health care provider; J45.20 Mild intermittent asthma, uncomplicated; K21.9 Gastro-esophageal reflux disease without esophagitis; B19.20 Unspecified viral hepatitis C without hepatic coma; F17.200 Nicotine dependence, unspecified, uncomplicated; F10.21 Alcohol dependence, in remission; F19.21 Other psychoactive substance dependence, in remission; Z88.0 Allergy status to penicillin; Z88.5 Allergy status to narcotic agent; Z91.040 Latex allergy status; Z91.048 Other nonmedicinal substance allergy status; Z82.5 Family history of asthma and other chronic lower respiratory diseases; Z83.3 Family history of diabetes mellitus; Z82.49 Family history of ischemic heart disease and other diseases of the circulatory system